=== PATIENT | male | born 1965 | race African-American/Black ===

== ENCOUNTER 2022-05-27 16:24 | Observation (INO) | payer OTHER, SELFPAY ==
[2022-05-27] VITALS (15 sets, daily range): BP systolic 119–150; BP diastolic 54–80; PULSE 45–96; RESP 11–17; TEMP 36.2–37.2; O2SAT 93–100; BMI 33.0
--- NOTE | ~2022-05-27 | XR_ITS ---
EXAMINATION: XR chest 2V DATE: 05/28/2022 10:32 INDICATION: Chest pain, rib fracture TECHNIQUE: AP and lateral views of the chest are obtained. COMPARISON: 05/27/2022 FINDINGS: There are minimal persistent airspace opacities of the medial right lower lobe without sign ificant change. The known right rib fractures are not well demonstrated. No pleural effusion or pneum othorax. The cardiomediastinal silhouette is normal. There is moderate thoracic spondylosis. IMPRESSION: 1. Stable airspace opacities in the medial right lower lobe, consistent with atelectasis versus pulmo nary contusion. Reviewed, dictated and finalized at location A. IMPRESSION: 1. Stable airspace opacities in the medial right lower lobe, consistent with at electasis versus pulmonary contusion.
--- NOTE | ~2022-05-27 | XR_ITS ---
EXAMINATION: XR chest 1V portable INDICATION: Chest pain after fall TECHNIQUE: Portable AP chest at 1901 hours COMPARISON: CT from today FINDINGS: The known right rib fractures are not well demonstrated. There are airspace opacities in th e medial aspect of the right lower lobe. No pleural effusion or pneumothorax. Changes of fusion proce dure are noted at T8-9. IMPRESSION: 1. Minimal airspace opacity in the medial aspect of the right lower lobe demonstrated to be associate d with rib fractures on the comparison CT and consistent with atelectasis versus pulmonary contusion. Reviewed, dictated and finalized at location F. IMPRESSION: 1. Minimal airspace opacity in the medial aspect of the right lower lobe demons trated to be associated with rib fractures on the comparison CT and consistent with atelectasis versus pulmonary contusion.
--- NOTE | ~2022-05-27 | CT_ITS ---
EXAMINATION: CT thoracic lumbar wo con DATE: 05/27/2022 18:06 INDICATION: Thoracic and lumbar back pain after fall TECHNIQUE: Computed tomography (CT) of the thoracic and lumbar spine was performed without intravenou s contrast. The dose-length product (DLP) was 1921.24 mGy-cm. Iterative reconstruction was used. COMPARISON: None FINDINGS: Thoracic spine: There are changes of fusion at T8 and T9. There is severe loss of intervertebral disc space height at T7-8. There is mild loss of intervertebral disc space height throughout much of the remainder of the thoracic spine. No thoracic spine fracture is identified. There is an acute posterom edial fracture of the right ninth rib. There is an acute fracture of the right 10th rib near the rachelle culation with the right T10 transverse process. There are adjacent airspace opacities of the right lo wer lobe. There is a small right pleural effusion. Lumbar spine: Alignment is normal. There is no fracture. The vertebral body heights are maintained. T here is moderate loss of intervertebral disc space height at L4-5. There is moderate facet joint oste oarthritis at L4-5 and L5-S1. There is marked distention of the urinary bladder. IMPRESSION: 1. Acute fractures of the right ninth and 10th ribs with adjacent airspace opacities in the right low er lobe, consistent with atelectasis Nazia/or pulmonary contusion. 2. Small right pleural effusion. 3. Moderate thoracic and lumbar spondylosis without spine fracture identified. Reviewed, dictated and finalized at location F. IMPRESSION: 1. Acute fractures of the right ninth and 10th ribs with adjacent airspace opac ities in the right lower lobe, consistent with atelectasis Nazia/or pulmonary con tusion. 2. Small right pleural effusion. 3. Moderate thoracic and lumbar spondylosis without spine fracture identified.
--- NOTE | 2022-05-27 17:31 | ED.FALL ---
HPI - Fall General Chief Complaint: Fall <Domenic Wharton PA-C - Last Filed: 05/28/22 00:52> Stated Complaint: Fall <Domenic Wharton PA-C - Last Filed: 05/28/22 00:52> Time Seen by Provider: 05/27/22 16:54 <Domenic Wharton PA-C - Last Filed: 05/28/22 00:52> History of Present Illness HPI Narrative: This is a 57-year-old male with recent history of back surgery on May 11, 2022 who presents to the ED with chief complaint of a fall. Patient uses wheelchair for mobility. States he [place] [employer] [place] and [place] the ramp and fell out of his wheelchair forwards. Patient states that he had a pinched nerve that causes paralysis of his lower legs, had surgery for a spacer in the spine with a surgeon at [facility]. At present patient complains of mid to low back pain. Denies any further site of pain or injury. Denies LOC or head injury. Denies chest pain, shortness of breath, fevers, nausea, vomiting. States his last pain medicine dose was last night at home. <Domenic Wharton PA-C - Last Filed: 05/28/22 00:52> Related Data Home Medications: Home Medications Medication Instructions Recorded Confirmed albuterol sulfate 90 mcg/actuation 2 puff inhalation Q4H PRN 05/27/22 05/27/22 aerosol inhaler Shortness Of Breath amlodipine 10 mg tablet 10 mg PO DAILY 05/27/22 05/27/22 atorvastatin 10 mg tablet 10 mg PO DAILY 05/27/22 05/27/22 hydrochlorothiazide 25 mg tablet 25 mg PO DAILY 05/27/22 05/27/22 losartan 50 mg tablet 50 mg PO DAILY 05/27/22 05/27/22 <BHARATH John Last Filed: 05/28/22 00:52> Allergies/Adverse Reactions: Allergies Allergy/AdvReac Type Severity Reaction Status Date / Time No Known Allergies Allergy Verified 05/28/22 19:37 <BHARATH John Last Filed: 05/28/22 00:52> Review of Systems Review of Systems: CONSTITUTIONAL: Denies fever, chills, or sweats. EYES: Denies visual changes, redness, or discharge. ENT: Denies rhinorrhea, congestion, sore throat, or otalgia. CARDIOVASCULAR: Denies chest pain, palpitations, or edema. RESPIRATORY: Denies cough or dyspnea. GASTROINTESTINAL: Denies abdominal pain, nausea, vomiting, or diarrhea. GENITOURINARY: Denies dysuria or hematuria. SKIN: Denies rash or itching. MUSCULOSKELETAL: See HPI NEUROLOGIC: Denies headache, numbness, dizziness, or weakness. PSYCHIATRIC: Denies anxiety or depression. <Domenic Wharton PA-C - Last Filed: 05/28/22 00:52> [facility] Social History Social History: Social History Smoking status: Former smoker Alcohol intake: never Substance use type: marijuana Lack of Transportation: YES Lack of Food: Never True Current Housing: I Have Housing Concerned About Future Housing: No Difficulty Paying Gas/Electric Bills: No Difficulty Paying for Meds: No Currently Unemployed: No Education: High School Diploma/GED Difficulty w/ Childcare or Family Care: No Spiritual care concerns: No <Domenic Wharton PA-C - Last Filed: 05/28/22 00:52> Exam Narrative: GENERAL: Well-appearing, well-nourished, and in no acute distress. HEAD: Normocephalic, atraumatic. EYES: PERRLA and EOMI. ENT: Nares clear, no rhinorrhea or epistaxis. Mucous membranes moist. Oropharynx without tonsillar hypertrophy exudate or other lesions. NECK: Supple. No adenopathy or masses. CHEST: No respiratory distress. Clear to auscultation. No wheezes rales or rhonchi HEART: Regular rate and rhythm. No murmur heard. Normal peripheral pulses. ABDOMEN: Soft, nontender, nondistended, normal active bowel sounds. EXTREMITIES: Moderate midline and paraspinal tenderness to the thoracolumbar spine. No tenderness to the cervical spine. No bony deformities or step-offs. No obvious deformities. No tenderness throughout the muscles and joints. No edema. 5 out of 5 sensation throughout the lower extremities, 0 out of 5 strength. 5 out of 5 strength and sensation i
[2022-05-27] MEDS: HYDROcodone/acetaminophen (*CRX) 7.5-325 MG TABLET 1 TAB PO (17:44)
--- NOTE | 2022-05-27 20:21 | PM.IMHP ---
H&P: HPI History of Present Illness Date/Time: 05/27/22 20:21 Chief Complaint: Fall Narrative: This is a 57-year-old male with recent history of back surgery on May 11, 2022 who presents to the ED with chief complaint of a fall.? Patient uses wheelchair for mobility.? States he [place] [employer] [place] and [place] the ramp and fell out of his wheelchair forwards.? Patient states that he had a pinched nerve that causes paralysis of his lower legs, had surgery for a spacer in the spine with a surgeon at [facility].? At present patient complains of mid to low back pain.? Denies any further site of pain or injury.? Denies LOC or head injury.? Denies chest pain, shortness of breath, fevers, nausea, vomiting. Patient was given pain meds and admiited to floor for further treatment. Review of Systems Review of Systems: All systems reviewed & are unremarkable except as noted in HPI and below (the history and physical examination.) [facility] Social History Social History Smoking status: Former smoker Alcohol intake: never Substance use type: marijuana Lack of Transportation: YES Lack of Food: Never True Current Housing: I Have Housing Concerned About Future Housing: No Difficulty Paying Gas/Electric Bills: No Difficulty Paying for Meds: No Currently Unemployed: No Education: High School Diploma/GED Difficulty w/ Childcare or Family Care: No Spiritual care concerns: No Meds Home Medications and Allergies Home Medications Medication Instructions Recorded Confirmed Type albuterol sulfate 90 mcg/actuation 2 puff inhalation Q4H PRN 05/27/22 05/27/22 History aerosol inhaler Shortness Of Breath amlodipine 10 mg tablet 10 mg PO DAILY 05/27/22 05/27/22 History atorvastatin 10 mg tablet 10 mg PO DAILY 05/27/22 05/27/22 History hydrochlorothiazide 25 mg tablet 25 mg PO DAILY 05/27/22 05/27/22 History losartan 50 mg tablet 50 mg PO DAILY 05/27/22 05/27/22 History Allergies Allergy/AdvReac Type Severity Reaction Status Date / Time No Known Allergies Allergy Verified 05/27/22 16:31 Vital Signs Vital Signs - 24 hr 05/27/22 16:26 05/27/22 16:27 05/27/22 16:30 Temperature 37.2 C Pulse Rate 96 91 95 Respiratory Rate 16 14 17 Blood Pressure 119/80 Pulse Oximetry 99 98 100 Oxygen Delivery Room Air 05/27/22 16:45 05/27/22 17:00 05/27/22 17:45 Temperature Pulse Rate 83 82 79 Respiratory Rate 14 15 17 Blood Pressure Pulse Oximetry Oxygen Delivery 05/27/22 18:01 05/27/22 18:14 05/27/22 18:16 Temperature Pulse Rate 61 45 L 49 L Respiratory Rate 14 16 14 Blood Pressure 140/70 125/66 Pulse Oximetry 100 Oxygen Delivery 05/27/22 18:46 05/27/22 19:00 Temperature Pulse Rate 63 59 L Respiratory Rate 13 13 Blood Pressure 126/54 L Pulse Oximetry Oxygen Delivery Exam Narrative: GENERAL: Well-appearing, well-nourished, and in no acute distress. HEAD: Normocephalic, atraumatic. EYES: PERRLA and EOMI. ENT: Nares clear, no rhinorrhea or epistaxis.? Mucous membranes moist.? Oropharynx without tonsillar hypertrophy exudate or other lesions. NECK: Supple.? No adenopathy or masses.? CHEST: No respiratory distress. Clear to auscultation. No wheezes rales or rhonchi HEART: Regular rate and rhythm.? No murmur heard.? Normal peripheral pulses. ABDOMEN: Soft, nontender, nondistended, normal active bowel sounds. EXTREMITIES: Moderate midline and paraspinal tenderness to the thoracolumbar spine.? No tenderness to the cervical spine.? No bony deformities or step-offs. ?No obvious deformities.? No tenderness throughout the muscles and joints.? No edema.? 5 out of 5 sensation throughout the lower extremities, 0 out of 5 strength.? 5 out of 5 strength and sensation in the upper extremities. SKIN: Warm, dry, no rash. NEURO: Alert and oriented x3. No focal deficits.? PSYCH: Normal mood and affect. Assessment and Plan
[2022-05-27 20:39] LABS: Alanine Aminotransferase 68 U/L (6-50); Albumin Level 3.8 g/dL (3.5-5.1); Alkaline Phosphatase 118 U/L (38-126); Anion Gap 11 mmol/L (8-16); Aspartate Amino Transferase 38 U/L (17-59); Bilirubin,Total 0.7 mg/dL (0.2-1.3); Blood Urea Nitrogen 21 mg/dL (9-20); Calcium 9.3 mg/dL (8.4-10.2); Carbon Dioxide 25 mmol/L (22-30); Chloride 113 mmol/L (98-107); Estimated CRCL calculation 81 ml/min; Estimated Glomerular Filt Rate > 60; Glucose 95 mg/dL (65-110); Potassium 2.9 mmol/L (3.4-5.0); Sodium 149 mmol/L (137-145)
[2022-05-27 21:00] LABS: Basophils Percent Auto 0.1 % (0.2-1.2); Eosinophils Percent Auto 0.1 % (0-4.4); Hematocrit 37.1 % (42.0-52.0); Hemoglobin 11.9 g/dL (14.0-18.0); Immature Granulocyte Absolute 0.04 K/mm3 (0.00-0.031); Immature Granulocyte Percent A 0.3 % (0-0.5); Lymphocytes Absolute Auto 2.53 K/mm3 (0.9-3.2); Lymphocytes Percent Auto 18.6 % (18.3-44.2); Mean Corpuscular HGB Conc 32.1 g/dl (32-36); Mean Corpuscular Hemoglobin 31.8 pg (26-34); Mean Corpuscular Volume 99.2 fl (80-100); Mean Platelet Volume 11.6 fl (7.4-10.4); Monocytes Absolute Auto 1.5 K/mm3 (0.1-0.6); Monocytes Percent Auto 11.1 % (2.6-8.5); Neutrophils Absolute Auto 9.5 K/mm3 (1.3-6.7); Neutrophils Percent Auto 69.8 % (45.5-73.1); Platelet Count Result 280 k/mm3 (150-375); Red Blood Count 3.74 M/mm3 (4.6-6.20); Red Cell Distribution Width 16.3 % (11.5-14.5); White Blood Count 13.6 K/mm3 (4.5-10.0)
--- NOTE | 2022-05-27 21:50 | ADMGEN ---
This patient, Too Ly, was admitted to [facility] Surg Room 320-01. Patient/family oriented to hospital policies and general routines including ID bracelet, bed and alarms, visiting hours, pain management, procedures, bathroom and other care routines, personal items, smoking policy, room service/diet, and visiting hours. Information on how to activate the Rapid Response Team has been discussed. Patient/Family are encouraged to report perceived risks to care and to ask questions if they do not understand what they are told or what they should do.
[2022-05-27] MEDS: ENOXAPARIN 40 MG/0.4 ML SYRINGE SUB-Q (22:11)
[2022-05-27] MEDS: POTASSIUM CHLORIDE 20 MEQ TABLET.ER 40 MEQ PO (22:11)
[2022-05-28 06:00] VITALS: BP 124/56; PULSE 57; RESP 16; TEMP 36.1; O2SAT 100
[2022-05-28] MEDS: ENOXAPARIN 40 MG/0.4 ML SYRINGE SUB-Q (08:59)
[2022-05-28] MEDS: amLODIPine BESYLATE 5 MG TABLET 10 MG PO (08:59)
[2022-05-28] MEDS: LOSARTAN POTASSIUM 50 MG TABLET PO (08:59)
[2022-05-28] MEDS: POTASSIUM CHLORIDE 20 MEQ TABLET.ER 40 MEQ PO (08:59)
[2022-05-28] MEDS: HYDROcodone/acetaminophen (*CRX) 5-325 MG TABLET 1 TAB PO (08:59)
[2022-05-28] MEDS: ATORVASTATIN 10 MG TABLET PO (08:59)
--- NOTE | 2022-05-28 11:22 | PCPTNOTE ---
Just got back in bed with the maximove by nursing. Will check on the patient later.
[2022-05-28 14:00] VITALS: BP 147/68; PULSE 58; RESP 14; TEMP 36.4; O2SAT 100
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
--- NOTE | 2022-05-28 15:58 | PC.NURSE ---
patient states that he is going to leave AMA. He is alert and oriented x4, and is aware of what leaving AMA means. He states that he daughter is on the way and will take him home. He said that he has outpatient PT set up. nurse contacted Dr. Cox and he is aware. iv removed, patient is currently waiting for daughter to get here.
--- NOTE | 2022-05-30 06:50 | PM.DS ---
DS: Admitting Diagnosis Discharge Date 05/28/22 Admitting Diagnosis Fall DS: Discharge Diagnosis Discharge Diagnosis (1) Multiple rib fractures: Code(s): S22.49XA - Multiple fractures of ribs, unspecified side, initial encounter for closed fracture Status: Acute (2) Atelectasis, right: Code(s): J98.11 - Atelectasis Status: Acute (3) Fall: Code(s): W19.XXXA - Unspecified fall, initial encounter Status: Acute (4) History of back surgery: Code(s): Z98.890 - Other specified postprocedural states Status: Acute (5) Hypokalemia: Code(s): E87.6 - Hypokalemia Status: Acute (6) History of hypertension: Code(s): Z86.79 - Personal history of other diseases of the circulatory system Status: Acute (7) Dyslipidemia: Code(s): E78.5 - Hyperlipidemia, unspecified Status: Acute (8) Paralysis of both lower limbs: Code(s): G82.20 - Paraplegia, unspecified Status: Acute (9) Hypernatremia: Code(s): E87.0 - Hyperosmolality and hypernatremia Status: Acute DS: Summary Hospital Course Reason for hospitalization: 57yo male with recent back surgery with paraplegia here for fall. Please see H&P for details. Hospital Course: Patient was trying to get on the [employer] bus today and missed the ramp and fell out of his wheelchair.? Patient has a pinched nerve with paralysis of his lower legs. He had a surgery for a spacer in the spine at [facility] in April.? At present patient complains of mid to low back pain.? On admission, his vital signs were stable. WBC mildly elevated. Na 149 and potassium 2.9. He was on HCTZ and this was held. TSH normal. Cortisol level slightly elevated at 25. CT thoracic/lumbar spine showing acute fracture of the right 9th and 10th rib with adjacent airspace opacities in the RLL and small right pleural effusion. He was started on antibiotics and albuterol. Incentive spirometry ordered. PT/OT ordered. Patient later in the day decided to sign out against medical advise. Status at Discharge Cognitive/behavioral status at discharge: stable Time Spent with Patient Time attestation: Total time spent providing and/or coordinating discharge services: 32 minutes Time spent: Greater than 30 minutes Exam Narrative: AF 97.5 147/68 58 14 100% ra Gen - NARD Chest - CTA bilaterally, nml RR CV - RRR S1/S2 Abd - Soft, NT/ND, Positive BS Ext - trace pedal edema Neuro - Alert and oriented but has difficulty providing coherent time line of events. Paraplegia. Psych - Nml mood and affect but does become terse at times Skin - Warm and dry Discharge Plan Discharge Patient Disposition: Left Against Medical Advice Discharge Medications: No Action losartan 50 mg tablet 50 mg PO DAILY atorvastatin 10 mg tablet 10 mg PO DAILY amlodipine 10 mg tablet 10 mg PO DAILY hydrochlorothiazide 25 mg tablet 25 mg PO DAILY albuterol sulfate 90 mcg/actuation HFA aerosol inhaler 2 puff INHALATION Q4H PRN (Reason: Shortness Of Breath) Date of admission: 05/27/22 20:02 Primary Care Provider: PHYSICIAN NOT ON STAFF,NONSTAFF Admitting Provider: Chele Muniz Attending physician on admission: Chele Muniz Condition: Stable
--- NOTE | 2022-05-31 06:30 | PC.NURSE ---
urine cx is negative, now growth. Dr. Cox aware.
== END 2022-05-28 18:46 | disposition left against medical advice (07) ==
LOC: ANHED 20:06 → ANH3MEDSUR 21:12
PROVIDERS: Admitting Provider Internal Medicine; Emergency Provider Physician Assistant; Visit Provider Internal Medicine
DX: S22.41XA Multiple fractures of ribs, right side, initial encounter for closed fracture (principal); J98.11 Atelectasis; W05.0XXA Fall from non-moving wheelchair, initial encounter; Y93.89 Activity, other specified; Y92.811 Bus as the place of occurrence of the external cause; Z99.3 Dependence on wheelchair; G82.20 Paraplegia, unspecified; Z98.890 Other specified postprocedural states; J90 Pleural effusion, not elsewhere classified; M47.814 Spondylosis without myelopathy or radiculopathy, thoracic region; E87.6 Hypokalemia; E87.0 Hyperosmolality and hypernatremia; Z86.79 Personal history of other diseases of the circulatory system; E78.5 Hyperlipidemia, unspecified; M47.816 Spondylosis without myelopathy or radiculopathy, lumbar region; F12.90 Cannabis use, unspecified, uncomplicated; Z87.891 Personal history of nicotine dependence; Z79.51 Long term (current) use of inhaled steroids; Z79.899 Other long term (current) drug therapy
CPT/HCPCS: 36415; 71045; 71046; 72128; 72131; 80053; 82533; 84443; 85025; 87086; 96365; 96367; 96372; 99285; A9270; G0378; J0456; J0696; J1650

== ENCOUNTER 2022-05-28 19:29 | Inpatient (IN) | payer OTHER, SELFPAY ==
[2022-05-28] VITALS (7 sets, daily range): BP systolic 136–151; BP diastolic 66–81; PULSE 60–83; RESP 14–24; TEMP 36.3–36.6; O2SAT 100
[2022-05-28] MEDS: HYDROcodone/acetaminophen (*CRX) 10-325 MG TABLET 1 TAB PO (20:10)
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
--- NOTE | 2022-05-28 21:19 | PC.NURSE ---
Attempted to contact patients daughter again, no answer and unable to leave a message. Will continue to try to get ahold of her.
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
[2022-05-28 22:25] LABS: Basophils Percent Auto 0.2 % (0.2-1.2); Eosinophils Percent Auto 0.3 % (0-4.4); Hematocrit 37.9 % (42.0-52.0); Immature Granulocyte Absolute 0.05 K/mm3 (0.00-0.031); Immature Granulocyte Percent A 0.4 % (0-0.5); Lymphocytes Absolute Auto 2.67 K/mm3 (0.9-3.2); Mean Corpuscular HGB Conc 31.7 g/dl (32-36); Mean Corpuscular Hemoglobin 31.5 pg (26-34); Mean Corpuscular Volume 99.5 fl (80-100); Mean Platelet Volume 11.6 fl (7.4-10.4); Monocytes Absolute Auto 1.3 K/mm3 (0.1-0.6); Neutrophils Absolute Auto 9.2 K/mm3 (1.3-6.7); Neutrophils Percent Auto 69.1 % (45.5-73.1); Platelet Count Result 272 k/mm3 (150-375); Red Blood Count 3.81 M/mm3 (4.6-6.20); Red Cell Distribution Width 16.2 % (11.5-14.5); White Blood Count 13.4 K/mm3 (4.5-10.0)
[2022-05-28 22:49] LABS: Alanine Aminotransferase 56 U/L (6-50); Albumin Level 3.6 g/dL (3.5-5.1); Alkaline Phosphatase 110 U/L (38-126); Anion Gap 5 mmol/L (8-16); Aspartate Amino Transferase 34 U/L (17-59); Bilirubin,Total 0.7 mg/dL (0.2-1.3); Blood Urea Nitrogen 20 mg/dL (9-20); Calcium 9.2 mg/dL (8.4-10.2); Carbon Dioxide 34 mmol/L (22-30); Chloride 113 mmol/L (98-107); Estimated CRCL calculation 81 ml/min; Estimated Glomerular Filt Rate > 60; Glucose 94 mg/dL (65-110); Magnesium 2.6 mg/dL (1.6-2.3); Phosphorus 3.3 mg/dL (2.5-4.5); Potassium 2.8 mmol/L (3.4-5.0); Sodium 152 mmol/L (137-145)
[2022-05-28] MEDS: KCL 20 MEQ/SW 100 ML 100 ML 50 MEQ IVPB (23:18)
--- NOTE | 2022-05-28 23:45 | PM.IMHP ---
H&P: HPI History of Present Illness Date/Time: 05/28/22 23:45 Chief Complaint: Fall Narrative: This is a 57-year-old male with past medical history significant for spinal stenosis, hypertension, patient underwent recent back surgery for ?pinched nerve this was on April patient was discharged home wheelchair had a fall when he attempted to get on the bus, presented to the emergency room with several rib fractures was admitted to regular medical floor however patient left AMA but returned later in the day. Patient denies any fevers, rigors, chills, cough, sputum production has pain from thoracic spine down, has bilateral lower extremity weakness which is not improved by surgery. Patient is been admitted for further evaluation management and treatment. Review of Systems Review of Systems: Back pain, bilateral lower extremity weakness. Constitutional: Constitutional: Denies chills, Denies fatigue, Denies fever(s), Denies lethargy, Denies malaise and Denies night sweats Eyes: Eyes: Denies change in vision ENT: Denies dysphagia and Denies odynophagia Cardiovascular: Cardiovascular: Denies chest pain, Denies syncope, Denies leg edema, Denies lightheadedness and Denies palpitations Respiratory: Respiratory: Denies chest congestion, Denies excessive phlegm production and Denies dyspnea Gastrointestinal: Gastrointestinal: Denies abdominal pain, Denies dyspepsia, Denies heartburn, Denies diarrhea, Denies nausea and Denies vomiting Genitourinary: Genitourinary: Reports other (Incontinence) Musculoskeletal: Musculoskeletal: Reports back pain and Reports muscle weakness (Bilateral lower extremity) Integumentary/Breasts: Skin/Breast: Denies rash Neurologic: Reports focal weakness (Bilateral lower extremity) and Reports weakness (Bilateral lower extremity) Psychiatric: Psychiatric: Reports no additional psychiatric complaints and Reports as per HPI Endocrine: Endocrine: Denies cold intolerance, Denies fatigue, Denies flushing, Denies heat intolerance, Denies polyphagia, Denies polydipsia and Denies palpitations Hematologic/Lymphatic: Hematologic/Lymphatic: Reports no additional hematologic/lymphatic complaints and Reports as per HPI Allergic/Immunologic: Allergic/Immunologic: Reports no additional allergic/immunologic complaints and Reports as per HPI PMFSH Social History Social History Smoking status: Never smoker Alcohol intake: never Substance use: never Substance use type: marijuana Lack of Transportation: YES Lack of Food: Sometimes True Current Housing: I Do Not Have Housing Concerned About Future Housing: YES Difficulty Paying Gas/Electric Bills: No Difficulty Paying for Meds: No Currently Unemployed: No Education: High School Diploma/GED Difficulty w/ Childcare or Family Care: No Spiritual care concerns: No Meds Home Medications and Allergies Home Medications Medication Instructions Recorded Confirmed Type albuterol sulfate 90 mcg/actuation 2 puff inhalation Q4H PRN 05/27/22 05/29/22 History aerosol inhaler Shortness Of Breath amlodipine 10 mg tablet 10 mg PO DAILY 05/27/22 05/29/22 History atorvastatin 10 mg tablet 10 mg PO DAILY 05/27/22 05/29/22 History hydrochlorothiazide 25 mg tablet 25 mg PO DAILY 05/27/22 05/29/22 History losartan 50 mg tablet 50 mg PO DAILY 05/27/22 05/29/22 History Allergies Allergy/AdvReac Type Severity Reaction Status Date / Time No Known Allergies Allergy Verified 05/28/22 20:02 Vital Signs Vital Signs - 24 hr 05/28/22 19:34 05/28/22 20:02 05/28/22 22:19 Temperature 97.3 F L 97.8 F Pulse Rate 83 70 64 Respiratory Rate 16 17 14 Blood Pressure 143/81 H 140/80 136/66 Pulse Oximetry 100 100 100 Oxygen Delivery Room Air 05/28/22 20:06 05/28/22 20:28 05/28/22 22:20 Temperature Pulse Rate 76 61 60 Respiratory Rate 24 H 18 22 H Blood Pressure Pulse Oximetr
[2022-05-29] VITALS (8 sets, daily range): BP systolic 139–159; BP diastolic 65–71; PULSE 47–68; RESP 17–22; TEMP 35.9–36.4; O2SAT 100; BMI 32.8
--- NOTE | 2022-05-29 00:15 | ADMGEN ---
This patient, Too Ly, was admitted to 3 [facility] Surg Room 326-01. Patient/family oriented to hospital policies and general routines including ID bracelet, bed and alarms, visiting hours, pain management, procedures, bathroom and other care routines, personal items, smoking policy, room service/diet, and visiting hours. Information on how to activate the Rapid Response Team has been discussed. Patient/Family are encouraged to report perceived risks to care and to ask questions if they do not understand what they are told or what they should do.
[2022-05-29] MEDS: POTASSIUM CHLORIDE 20 MEQ TABLET 40 MEQ PO (06:57)
[2022-05-29 07:01] LABS: Basophils Percent Auto 0.3 % (0.2-1.2); Eosinophils Percent Auto 0.2 % (0-4.4); Hematocrit 37.8 % (42.0-52.0); Immature Granulocyte Absolute 0.07 K/mm3 (0.00-0.031); Immature Granulocyte Percent A 0.6 % (0-0.5); Lymphocytes Absolute Auto 2.23 K/mm3 (0.9-3.2); Mean Corpuscular HGB Conc 31.7 g/dl (32-36); Mean Corpuscular Volume 97.7 fl (80-100); Mean Platelet Volume 11.8 fl (7.4-10.4); Monocytes Absolute Auto 1.1 K/mm3 (0.1-0.6); Neutrophils Absolute Auto 8.9 K/mm3 (1.3-6.7); Neutrophils Percent Auto 71.9 % (45.5-73.1); Platelet Count Result 277 k/mm3 (150-375); Red Blood Count 3.87 M/mm3 (4.6-6.20); Red Cell Distribution Width 16.3 % (11.5-14.5); White Blood Count 12.4 K/mm3 (4.5-10.0)
[2022-05-29 07:28] LABS: Anion Gap 7 mmol/L (8-16); Blood Urea Nitrogen 20 mg/dL (9-20); Calcium 9.4 mg/dL (8.4-10.2); Carbon Dioxide 31 mmol/L (22-30); Chloride 115 mmol/L (98-107); Estimated CRCL calculation 73 ml/min; Estimated Glomerular Filt Rate > 60; Glucose 92 mg/dL (65-110); Potassium 2.8 mmol/L (3.4-5.0); Sodium 153 mmol/L (137-145)
[2022-05-29] MEDS: amLODIPine BESYLATE 5 MG TABLET 10 MG PO (08:21)
[2022-05-29] MEDS: hydroCHLOROthiazide 25 MG TABLET PO (08:21)
[2022-05-29] MEDS: LOSARTAN POTASSIUM 50 MG TABLET PO (08:21)
[2022-05-29] MEDS: ATORVASTATIN 10 MG TABLET PO (08:21)
[2022-05-29] MEDS: oxyCODONE HCL (*CRX) 10 MG TAB SR 12HR PO ×2 (08:23→21:26)
--- NOTE | 2022-05-29 10:26 | PM.IMPN ---
Progress Note: A&P Assessment and Plan (1) Multiple rib fractures: Code(s): S22.49XA - Multiple fractures of ribs, unspecified side, initial encounter for closed fracture Status: Acute Assessment and Plan: PT, incentive spirometry (2) Atelectasis, right: Code(s): J98.11 - Atelectasis Status: Acute Assessment and Plan: Incentive spirometry (3) Fall: Code(s): W19.XXXA - Unspecified fall, initial encounter Status: Acute Assessment and Plan: PT/OT (4) History of back surgery: Code(s): Z98.890 - Other specified postprocedural states Status: Acute Assessment and Plan: Postop back surgery at [facility] 05/11, [facility] (5) Hypokalemia: Code(s): E87.6 - Hypokalemia Status: Acute Assessment and Plan: Hold hydrochlorothiazide, replace and recheck (6) History of hypertension: Code(s): Z86.79 - Personal history of other diseases of the circulatory system Status: Acute (7) Dyslipidemia: Code(s): E78.5 - Hyperlipidemia, unspecified Status: Acute Plan PT/OT/care coordination to arrange safe discharge DVT prophylaxis with SCDs GI prophylaxis not indicated Code status full code Subjective Date/time seen: 05/29/22 10:26 Interval history: 57-year-old male with history of spinal stenosis and hypertension who is postop for back surgery from May 11 at [facility] then sent to a rehab and [place], has only been home since 05/24-05/25 or so, is presenting with a fall from his wheelchair with several rib fractures and continued pain and bilateral lower extremity weakness, was admitted 05/27, seen 05/28 and left AMA, returned to the ER later that evening with same concerns. No overnight events noted. No chest pain or shortness of breath. No nausea, vomiting or diarrhea. No fevers or chills. Review of Systems Review of Systems: 12 point review of systems was assessed and was negative except as noted in the HPI Exam Narrative: General: No acute distress, alert and oriented per baseline HEENT: Atraumatic, normocephalic, mucous membranes moist CV: Regular rate and rhythm, S1, S2 Lungs: Clear to auscultation bilaterally, no rales or crackles noted, no wheezes, good air entry Abdomen: Soft, nontender, nondistended Extremities: Normal to inspection Skin: No rashes noted, no lesions or wounds seen Psych: Euthymic, normal affect Objective Data Vital Signs Vital Signs: Vital Signs - 24 hr 05/28/22 19:34 05/28/22 20:02 05/28/22 22:19 Temperature 97.3 F L 97.8 F Pulse Rate 83 70 64 Respiratory Rate 16 17 14 Blood Pressure 143/81 H 140/80 136/66 Pulse Oximetry 100 100 100 Oxygen Delivery Room Air 05/28/22 20:06 05/28/22 20:28 05/28/22 22:20 Temperature Pulse Rate 76 61 60 Respiratory Rate 24 H 18 22 H Blood Pressure Pulse Oximetry 100 100 Oxygen Delivery 05/28/22 22:32 05/29/22 01:00 05/29/22 06:00 Temperature 97.6 F Pulse Rate 65 65 50 L Respiratory Rate 22 H 20 Blood Pressure 151/77 H 148/65 H Pulse Oximetry 100 100 Oxygen Delivery Room Air 05/29/22 08:48 05/29/22 08:02 Temperature Pulse Rate 52 L Respiratory Rate Blood Pressure Pulse Oximetry Oxygen Delivery Room Air Intake/Output Intake/Output: Intake & Output 05/26/22 05/27/22 05/28/22 05/29/22 23:59 23:59 23:59 23:59 Intake Total 100 Balance 100 Meds/Results Medications: Active Medications Generic Name Dose Route Start Last Admin Trade Name Freq PRN Reason Stop Dose Admin Acetaminophen 1,000 mg 05/29/22 01:50 Acetaminophen 500 Mg Tablet PO Q6H PRN Mild Pain (1-3) or Fever Albuterol 2 puff 05/29/22 01:50 Albuterol Sulfate (*Sp) Aerosol 1 Puff INHALATION Q4H PRN Shortness Of Breath Amlodipine Besylate 10 mg 05/29/22 09:00 05/29/22 08:21 Amlodipine Besylate
[2022-05-29 10:49] LABS: Anion Gap 7 mmol/L (8-16); Blood Urea Nitrogen 20 mg/dL (9-20); Calcium 9.4 mg/dL (8.4-10.2); Carbon Dioxide 31 mmol/L (22-30); Chloride 113 mmol/L (98-107); Estimated CRCL calculation 80 ml/min; Estimated Glomerular Filt Rate > 60; Glucose 89 mg/dL (65-110); Potassium 2.9 mmol/L (3.4-5.0); Sodium 151 mmol/L (137-145)
[2022-05-30] VITALS (9 sets, daily range): BP systolic 127–149; BP diastolic 73–77; PULSE 54–77; RESP 16–18; TEMP 35.5–36.3; O2SAT 100
[2022-05-30] MEDS: DEXTROSE 5% 1,000 ML 1,000 ML 75 ML IV CONT (05:19)
[2022-05-30 08:07] LABS: Basophils Percent Auto 0.2 % (0.2-1.2); Eosinophils Percent Auto 0.3 % (0-4.4); Hematocrit 38.9 % (42.0-52.0); Hemoglobin 12.3 g/dL (14.0-18.0); Immature Granulocyte Absolute 0.06 K/mm3 (0.00-0.031); Immature Granulocyte Percent A 0.5 % (0-0.5); Lymphocytes Absolute Auto 2.66 K/mm3 (0.9-3.2); Lymphocytes Percent Auto 20.2 % (18.3-44.2); Mean Corpuscular HGB Conc 31.6 g/dl (32-36); Mean Corpuscular Hemoglobin 31.1 pg (26-34); Mean Corpuscular Volume 98.5 fl (80-100); Mean Platelet Volume 11.8 fl (7.4-10.4); Monocytes Percent Auto 7.9 % (2.6-8.5); Neutrophils Absolute Auto 9.3 K/mm3 (1.3-6.7); Neutrophils Percent Auto 70.9 % (45.5-73.1); Platelet Count Result 265 k/mm3 (150-375); Red Blood Count 3.95 M/mm3 (4.6-6.20); Red Cell Distribution Width 16.4 % (11.5-14.5); White Blood Count 13.2 K/mm3 (4.5-10.0)
[2022-05-30 08:20] LABS: Alanine Aminotransferase 48 U/L (6-50); Albumin Level 3.8 g/dL (3.5-5.1); Alkaline Phosphatase 121 U/L (38-126); Anion Gap 7 mmol/L (8-16); Aspartate Amino Transferase 34 U/L (17-59); Bilirubin,Total 0.7 mg/dL (0.2-1.3); Blood Urea Nitrogen 19 mg/dL (9-20); Calcium 9.4 mg/dL (8.4-10.2); Carbon Dioxide 32 mmol/L (22-30); Chloride 112 mmol/L (98-107); Estimated CRCL calculation 80 ml/min; Estimated Glomerular Filt Rate > 60; Glucose 91 mg/dL (65-110); Sodium 151 mmol/L (137-145)
[2022-05-30] MEDS: LOSARTAN POTASSIUM 50 MG TABLET PO (11:10)
[2022-05-30] MEDS: ATORVASTATIN 10 MG TABLET PO (11:10)
[2022-05-30] MEDS: amLODIPine BESYLATE 5 MG TABLET 10 MG PO (11:10)
[2022-05-30] MEDS: oxyCODONE HCL (*CRX) 10 MG TAB SR 12HR PO ×2 (11:12→20:21)
[2022-05-31] VITALS (9 sets, daily range): BP systolic 140–152; BP diastolic 67–72; PULSE 56–89; RESP 16–19; TEMP 36.1–36.3; O2SAT 98–100
[2022-05-31 06:25] LABS: Basophils Percent Auto 0.2 % (0.2-1.2); Eosinophils Percent Auto 0.1 % (0-4.4); Hematocrit 39.6 % (42.0-52.0); Hemoglobin 12.7 g/dL (14.0-18.0); Immature Granulocyte Absolute 0.07 K/mm3 (0.00-0.031); Immature Granulocyte Percent A 0.5 % (0-0.5); Lymphocytes Absolute Auto 2.69 K/mm3 (0.9-3.2); Lymphocytes Percent Auto 18.8 % (18.3-44.2); Mean Corpuscular HGB Conc 32.1 g/dl (32-36); Mean Corpuscular Hemoglobin 31.2 pg (26-34); Mean Corpuscular Volume 97.3 fl (80-100); Monocytes Absolute Auto 1.2 K/mm3 (0.1-0.6); Monocytes Percent Auto 8.7 % (2.6-8.5); Neutrophils Absolute Auto 10.2 K/mm3 (1.3-6.7); Neutrophils Percent Auto 71.7 % (45.5-73.1); Platelet Count Result 264 k/mm3 (150-375); Red Blood Count 4.07 M/mm3 (4.6-6.20); Red Cell Distribution Width 16.4 % (11.5-14.5); White Blood Count 14.3 K/mm3 (4.5-10.0)
[2022-05-31 06:37] LABS: Alanine Aminotransferase 42 U/L (6-50); Albumin Level 3.9 g/dL (3.5-5.1); Alkaline Phosphatase 123 U/L (38-126); Anion Gap 7 mmol/L (8-16); Aspartate Amino Transferase 31 U/L (17-59); Bilirubin,Total 0.7 mg/dL (0.2-1.3); Blood Urea Nitrogen 20 mg/dL (9-20); Calcium 9.5 mg/dL (8.4-10.2); Carbon Dioxide 31 mmol/L (22-30); Chloride 113 mmol/L (98-107); Estimated CRCL calculation 73 ml/min; Estimated Glomerular Filt Rate > 60; Glucose 98 mg/dL (65-110); Potassium 2.9 mmol/L (3.4-5.0); Sodium 151 mmol/L (137-145)
[2022-05-31] MEDS: oxyCODONE HCL (*CRX) 10 MG TAB SR 12HR PO (08:58)
[2022-05-31] MEDS: amLODIPine BESYLATE 5 MG TABLET 10 MG PO (08:58)
[2022-05-31] MEDS: LOSARTAN POTASSIUM 50 MG TABLET PO (08:58)
[2022-05-31] MEDS: ATORVASTATIN 10 MG TABLET PO (08:58)
--- NOTE | 2022-05-31 13:34 | PM.IMPN ---
Progress Note: A&P Assessment and Plan (1) Multiple rib fractures: Code(s): S22.49XA - Multiple fractures of ribs, unspecified side, initial encounter for closed fracture Status: Acute Assessment and Plan: PT, incentive spirometry (2) Atelectasis, right: Code(s): J98.11 - Atelectasis Status: Acute Assessment and Plan: Incentive spirometry (3) Fall: Code(s): W19.XXXA - Unspecified fall, initial encounter Status: Acute Assessment and Plan: PT/OT (4) History of back surgery: Code(s): Z98.890 - Other specified postprocedural states Status: Acute Assessment and Plan: Postop back surgery at [facility] 05[facility]11, [facility] (5) Hypokalemia: Code(s): E87.6 - Hypokalemia Status: Acute Assessment and Plan: Hold hydrochlorothiazide, replace and recheck potassium is 2.9 today KCl rider to replace potassium (6) History of hypertension: Code(s): Z86.79 - Personal history of other diseases of the circulatory system Status: Acute (7) Dyslipidemia: Code(s): E78.5 - Hyperlipidemia, unspecified Status: Acute Subjective Date/time seen: 05/31/22 13:34 Interval history: 57-year-old male with history of spinal stenosis and hypertension who is postop for back surgery from May 11 at [facility] then sent to a rehab and [place], has only been home since 05/24-05/25 or so, is presenting with a fall from his wheelchair with several rib fractures and continued pain and bilateral lower extremity weakness, was admitted 05/27, seen 05/28 and left AMA, returned to the ER later that evening with same concerns. [place] [id number], sodium is 151, potassium is 2.9 Review of Systems Review of Systems: Some complaints of back pains Constitutional: Constitutional: Denies chills, Denies fatigue, Denies fever(s), Denies lethargy, Denies malaise, Denies night sweats and Reports weakness (Bilateral lower extremity) Exam Narrative: General: No acute distress holding conversation very weak HEENT: Atraumatic, normocephalic, mucous membranes moist CV: Regular rate and rhythm, S1, S2 Lungs: Clear to auscultation bilaterally, no rales or crackles noted, no wheezes, good air entry Abdomen: Soft, nontender, nondistended Extremities: Normal to inspection Skin: No rashes noted, no lesions or wounds seen Psych: Euthymic, normal affect Objective Data Vital Signs Vital Signs: Vital Signs - 24 hr 05/30/22 14:00 05/30/22 16:00 05/30/22 20:00 Temperature 36.3 C L Pulse Rate 58 L 58 L 58 L Respiratory Rate 16 16 Blood Pressure 149/77 H Pulse Oximetry 100 100 Oxygen Delivery Room Air 05/30/22 20:00 05/30/22 22:00 05/31/22 00:00 Temperature 36.1 C L Pulse Rate 64 64 67 Respiratory Rate 16 Blood Pressure 127/73 Pulse Oximetry 100 Oxygen Delivery 05/31/22 04:00 05/31/22 06:00 05/31/22 09:00 Temperature 36.1 C L Pulse Rate 65 56 L Respiratory Rate 19 Blood Pressure 141/67 H Pulse Oximetry 99 Oxygen Delivery Room Air Intake/Output Intake/Output: Intake & Output 05/28/22 05/29/22 05/30/22 05/31/22 23:59 23:59 23:59 23:59 Intake Total 1750 2650 100 Output Total 500 1500 500 Balance 1250 1150 -400 Meds/Results Medications: Active Medications Generic Name Dose Route Start Last Admin Trade Name Freq PRN Reason Stop Dose Admin Acetaminophen 1,000 mg 05/29/22 01:50 Acetaminophen 500 Mg Tablet PO Q6H PRN Mild Pain (1-3) or Fever Albuterol 2 puff 05/29/22 01:50 Albuterol Sulfate (*Sp) Aerosol 1 Puff INHALATION Q4H PRN Shortness Of Breath Amlodipine Besylate 10 mg 05/29/22 09:00 05/31/22 08:58 Amlodipine Besylate 5 Mg Tablet PO 10 mg DAILY ISAIAS Administration Atorvastatin Calcium 10 mg 05/29/22 09:00 05/31/22 08:58 Atorvastatin 10 Mg Tablet PO 10
--- NOTE | 2022-05-31 13:42 | PM.IMPN ---
Progress Note: A&P Assessment and Plan (1) Multiple rib fractures: Code(s): S22.49XA - Multiple fractures of ribs, unspecified side, initial encounter for closed fracture Status: Acute Assessment and Plan: PT, incentive spirometry (2) Atelectasis, right: Code(s): J98.11 - Atelectasis Status: Acute Assessment and Plan: Incentive spirometry (3) Fall: Code(s): W19.XXXA - Unspecified fall, initial encounter Status: Acute Assessment and Plan: PT/OT (4) History of back surgery: Code(s): Z98.890 - Other specified postprocedural states Status: Acute Assessment and Plan: Postop back surgery at [facility] 05/11, discharged from [facility] approximately 05/24 (5) Hypokalemia: Code(s): E87.6 - Hypokalemia Status: Acute Assessment and Plan: Hold hydrochlorothiazide, replace and recheck monitor sodium and potassium (6) History of hypertension: Code(s): Z86.79 - Personal history of other diseases of the circulatory system Status: Acute (7) Dyslipidemia: Code(s): E78.5 - Hyperlipidemia, unspecified Status: Acute Subjective Date/time seen: 05/30/22 13:00 Interval history: 57-year-old male with history of spinal stenosis and hypertension who is postop for back surgery from May 11 at [facility] then sent to a rehab and [place], has only been home since 05/24-05/25 or so, is presenting with a fall from his wheelchair with several rib fractures and continued pain and bilateral lower extremity weakness, was admitted 05/27, seen 05/28 and left AMA, returned to the ER later that evening with same concerns. Plan follow labs when medically stable start physical therapy, continue pain control Review of Systems Review of Systems: Some back pain Exam Narrative: General: No acute distress HEENT: Atraumatic, normocephalic, mucous membranes moist CV: Regular rate and rhythm, S1, S2 Lungs: Clear to auscultation bilaterally, no rales or crackles noted, no wheezes, good air entry Abdomen: Soft, nontender, nondistended Extremities: Normal to inspection Skin: No rashes noted, no lesions or wounds seen Psych: Euthymic, normal affect Objective Data Vital Signs Vital Signs: Vital Signs - 24 hr 05/30/22 14:00 05/30/22 16:00 05/30/22 20:00 Temperature 36.3 C L Pulse Rate 58 L 58 L 58 L Respiratory Rate 16 16 Blood Pressure 149/77 H Pulse Oximetry 100 100 Oxygen Delivery Room Air 05/30/22 20:00 05/30/22 22:00 05/31/22 00:00 Temperature 36.1 C L Pulse Rate 64 64 67 Respiratory Rate 16 Blood Pressure 127/73 Pulse Oximetry 100 Oxygen Delivery 05/31/22 04:00 05/31/22 06:00 05/31/22 09:00 Temperature 36.1 C L Pulse Rate 65 56 L Respiratory Rate 19 Blood Pressure 141/67 H Pulse Oximetry 99 Oxygen Delivery Room Air Intake/Output Intake/Output: Intake & Output 05/28/22 05/29/22 05/30/22 05/31/22 23:59 23:59 23:59 23:59 Intake Total 1750 2650 340 Output Total 500 1500 500 Balance 1250 1150 -160 Meds/Results Medications: Active Medications Generic Name Dose Route Start Last Admin Trade Name Freq PRN Reason Stop Dose Admin Acetaminophen 1,000 mg 05/29/22 01:50 Acetaminophen 500 Mg Tablet PO Q6H PRN Mild Pain (1-3) or Fever Albuterol 2 puff 05/29/22 01:50 Albuterol Sulfate (*Sp) Aerosol 1 Puff INHALATION Q4H PRN Shortness Of Breath Amlodipine Besylate 10 mg 05/29/22 09:00 05/31/22 08:58 Amlodipine Besylate 5 Mg Tablet PO 10 mg DAILY ISAIAS Administration Atorvastatin Calcium 10 mg 05/29/22 09:00 05/31/22 08:58 Atorvastatin 10 Mg Tablet PO 10 mg DAILY ISAIAS Administration Dextrose 1,000 mls @ 75 mls/hr 05/29/22 01:55 05/30/22 18:17 Dextrose 5% 1,000 Ml IV CONT Not Given .[id number] ISAIAS Potassium Chloride 100 mls @ 25 mls/hr 05/31/22 13:32 Kcl 40 Me
--- NOTE | 2022-05-31 14:18 | PM.CNNEP ---
Assessment and Plan Assessment and plan (1) Hypernatremia: Code(s): E87.0 - Hyperosmolality and hypernatremia Status: Acute Assessment and Plan: as noted on presentation on D5W IVFs -- will increase rate due to poor oral intake(?) check urine electrolytes follow trend of repeat sodium levels (2) Hypokalemia: Code(s): E87.6 - Hypokalemia Status: Acute Assessment and Plan: suspect to due poor oral intake, possible total K+ depletion, and HCTZ use replete K+ as needed check magnesium intermittently (3) Multiple rib fractures: Code(s): S22.49XA - Multiple fractures of ribs, unspecified side, initial encounter for closed fracture Status: Acute Assessment and Plan: incentive spirometry pain control (4) Fall: Code(s): W19.XXXA - Unspecified fall, initial encounter Status: Acute Assessment and Plan: PT/OT as tolerated fall precautions (5) Paralysis of both lower limbs: Code(s): G82.20 - Paraplegia, unspecified Status: Acute Assessment and Plan: s/p spinal surgery PT/OT as tolerated I will continue follow the patient with you while he remains hospitalized been further recommendations during his hospital course Thank you for allowing me to participate in the care this patient. History of Present Illness Reason for Consult Consult date: 05/31/22 Reason for consult: hypernatremia Chief Complaint Chief complaint: generalized weakness, falls History of Present Illness Narrative: The patient is a 57-year-old male with a past medical history as noted below who presented to [facility] Emergency room status post fall. He apparently was trying to get on a bus when he sustained a fall from his wheelchair. He initially presented to [facility] following this fall and was noted to have several rib fractures by imaging studies. Given his significant deconditioning from a recent back surgery as well as the a for mention rib fractures, he was admitted to the hospital for further evaluation therapy. However, he decided to leave against medical advise on that initial admission. However, due to his inability to get transportation home from family and his significant pain issues, he presented back to [facility] Emergency room for the same complaints. It should be noted on initial presentation as well as subsequent presentation that routine blood test demonstrated mild hypernatremia in association with hypokalemia. His hydrochlorothiazide medication was held and he was started on D5W IV fluids as well as potassium replacement which she remains on at this time on this ?2nd admission to the hospital. Renal consultation was requested due to his hypernatremia. Despite D5W IV fluids, my his sodium level is not changed significantly since admission. However, when should note, that he is not getting very much D5W IV fluids by his fluid rate and there is suspicion that his free water and oral intake is quite diminished at baseline. Furthermore, his hypokalemia is also persisted requiring multiple interventions in the form of oral and IV potassium replacement. Despite these electrolyte abnormalities, his main issue/concern is that of pain control and pain associated with his injuries associated with the recent fall. I am unclear if his hypernatremia and hypokalemia is a chronic issue or problem as I have no other previous blood test to compare to. Currently, at the time my evaluation, he is not appear to be in acute distress. Review of Systems Review of Systems: As per HPI. [facility] Social History Social History Smoking status: Never smoker Alcohol intake: never Substance use: never Substance use type: marijuana Lack of Transportation: YES Lack of Food: Sometimes True Current Housing: I Do Not Have Housing Concerned About
[2022-05-31] MEDS: POTASSIUM CHLORIDE 20 MEQ PACKET (FOR LIQUID) 40 MEQ PO (14:43)
[2022-05-31] MEDS: PIPERACILLN/TAZ 3.375GM/NS50ML 3.375 GM/50 ML BAG IVPB (15:35)
[2022-05-31] MEDS: POTASSIUM CHLORIDE INJ 40 MEQ in SODIUM CHLORIDE 0.9% IV 500 ML 130 MEQ IVPB (18:40)
--- NOTE | 2022-05-31 21:55 | PC.NURSE ---
Rounded on pt. Pt was to receive Zosyn and Oxycontin. Pt refused. Pt stated that he did not want any of his medications because his stomach was upset and he did not want to be bothered. Educated pt on medications he was to receive and that if he did refuse, then his stay may be lengthened. Pt still refused.
[2022-06-01] VITALS (9 sets, daily range): BP systolic 132–142; BP diastolic 70–76; PULSE 58–79; RESP 15–18; TEMP 36.2–36.3; O2SAT 98–100
[2022-06-01] MEDS: DEXTROSE 5% 1,000 ML 1,000 ML 75 ML IV CONT (03:22)
[2022-06-01] MEDS: PIPERACILLN/TAZ 3.375GM/NS50ML 3.375 GM/50 ML BAG IVPB ×4 (03:22→20:18)
[2022-06-01 06:05] LABS: Basophils Percent Auto 0.1 % (0.2-1.2); Eosinophils Absolute Auto 0.1 K/mm3 (0-0.3); Eosinophils Percent Auto 0.4 % (0-4.4); Hemoglobin 12.1 g/dL (14.0-18.0); Immature Granulocyte Absolute 0.07 K/mm3 (0.00-0.031); Immature Granulocyte Percent A 0.4 % (0-0.5); Lymphocytes Absolute Auto 2.11 K/mm3 (0.9-3.2); Lymphocytes Percent Auto 13.1 % (18.3-44.2); Mean Corpuscular HGB Conc 31.8 g/dl (32-36); Mean Corpuscular Hemoglobin 31.5 pg (26-34); Mean Platelet Volume 12.3 fl (7.4-10.4); Monocytes Absolute Auto 1.3 K/mm3 (0.1-0.6); Neutrophils Absolute Auto 12.6 K/mm3 (1.3-6.7); Platelet Count Result 246 k/mm3 (150-375); Red Blood Count 3.84 M/mm3 (4.6-6.20); Red Cell Distribution Width 16.5 % (11.5-14.5); White Blood Count 16.2 K/mm3 (4.5-10.0)
[2022-06-01 06:29] LABS: Alanine Aminotransferase 39 U/L (6-50); Albumin Level 3.6 g/dL (3.5-5.1); Alkaline Phosphatase 122 U/L (38-126); Anion Gap 8 mmol/L (8-16); Aspartate Amino Transferase 27 U/L (17-59); Bilirubin,Total 0.8 mg/dL (0.2-1.3); Blood Urea Nitrogen 20 mg/dL (9-20); Carbon Dioxide 30 mmol/L (22-30); Chloride 113 mmol/L (98-107); Estimated CRCL calculation 73 ml/min; Estimated Glomerular Filt Rate > 60; Glucose 104 mg/dL (65-110); Magnesium 2.6 mg/dL (1.6-2.3); Potassium 2.7 mmol/L (3.4-5.0); Sodium 151 mmol/L (137-145)
[2022-06-01] MEDS: POTASSIUM CHLORIDE 20 MEQ TABLET 40 MEQ PO (06:59)
--- NOTE | 2022-06-01 07:45 | PM.IMPN ---
Progress Note: A&P Assessment and Plan (1) Multiple rib fractures: Code(s): S22.49XA - Multiple fractures of ribs, unspecified side, initial encounter for closed fracture Status: Acute Assessment and Plan: PT, incentive spirometry (2) Atelectasis, right: Code(s): J98.11 - Atelectasis Status: Acute Assessment and Plan: Incentive spirometry (3) Fall: Code(s): W19.XXXA - Unspecified fall, initial encounter Status: Acute Assessment and Plan: PT/OT (4) History of back surgery: Code(s): Z98.890 - Other specified postprocedural states Status: Acute Assessment and Plan: Postop back surgery at [facility] 05/11, [facility] (5) Hypokalemia: Code(s): E87.6 - Hypokalemia Status: Acute Assessment and Plan: Hold hydrochlorothiazide, replace and recheck potassium is 2.9 today KCl rider to replace potassium (6) History of hypertension: Code(s): Z86.79 - Personal history of other diseases of the circulatory system Status: Acute (7) Dyslipidemia: Code(s): E78.5 - Hyperlipidemia, unspecified Status: Acute Subjective Date/time seen: 06/01/22 07:45 no new issues labs noted Exam Narrative: General: No acute distress HEENT: Atraumatic, normocephalic, mucous membranes moist CV: Regular rate and rhythm, S1, S2 Lungs: Clear to auscultation bilaterally, no rales or crackles noted, no wheezes, good air entry Abdomen: Soft, nontender, nondistended Extremities: Normal to inspection Skin: No rashes noted, no lesions or wounds seen Psych: Euthymic, normal affect Objective Data Vital Signs Vital Signs: Vital Signs - 24 hr 05/31/22 09:00 05/31/22 14:00 05/31/22 08:00 Temperature 97.3 F L Pulse Rate 70 66 Respiratory Rate 16 Blood Pressure 140/71 Pulse Oximetry 100 Oxygen Delivery Room Air 05/31/22 12:00 05/31/22 16:00 05/31/22 20:00 Temperature Pulse Rate 89 57 L 63 Respiratory Rate Blood Pressure Pulse Oximetry Oxygen Delivery 05/31/22 20:00 05/31/22 22:00 06/01/22 00:00 Temperature 97.3 F L Pulse Rate 62 63 Respiratory Rate 19 Blood Pressure 152/72 H Pulse Oximetry 98 Oxygen Delivery Room Air 06/01/22 04:00 06/01/22 06:00 Temperature 97.1 F L Pulse Rate 68 58 L Respiratory Rate 18 Blood Pressure 141/76 H Pulse Oximetry 100 Oxygen Delivery Intake/Output Intake/Output: Intake & Output 05/29/22 05/30/22 05/31/22 06/01/22 23:59 23:59 23:59 23:59 Intake Total 1750 3650 1140 270 Output Total 500 1500 800 700 Balance 1250 2150 340 -430 Meds/Results Medications: Active Medications Generic Name Dose Route Start Last Admin Trade Name Freq PRN Reason Stop Dose Admin Acetaminophen 1,000 mg 05/29/22 01:50 Acetaminophen 500 Mg Tablet PO Q6H PRN Mild Pain (1-3) or Fever Albuterol 2 puff 05/29/22 01:50 Albuterol Sulfate (*Sp) Aerosol 1 Puff INHALATION Q4H PRN Shortness Of Breath Amlodipine Besylate 10 mg 05/29/22 09:00 05/31/22 08:58 Amlodipine Besylate 5 Mg Tablet PO 10 mg DAILY ISAIAS Administration Atorvastatin Calcium 10 mg 05/29/22 09:00 05/31/22 08:58 Atorvastatin 10 Mg Tablet PO 10 mg DAILY ISAIAS Administration Dextrose 1,000 mls @ 75 mls/hr 05/29/22 01:55 06/01/22 03:22 Dextrose 5% 1,000 Ml IV CONT 75 mls/hr .[id number] ISAIAS Administration Piperacillin/Tazobactam/Dextrose 3.375 gm in 50 mls @ 100 mls/hr 05/31/22 15:00 06/01/22 03:52 Zosyn 3.375 Gm/Ns 50 Ml IVPB Infused Q6H ISAIAS Infusion Potassium Chloride 40 meq/ 520 mls @ 130 mls/hr 06/01/22 06:39 Sodium Chloride IVPB 06/01/22 10:38 ONCE ONE Potassium Chloride 40 meq/ 520 mls @ 130 mls/hr 06/01/22 07:44 Sodium Chloride IVPB 06/01/22 11:43 ONCE ONE Losartan Potassium 50 mg 05/29/22 09:00 05/31/22 08:58 L
[2022-06-01] MEDS: POTASSIUM CHLORIDE INJ 40 MEQ in SODIUM CHLORIDE 0.9% IV 500 ML 130 MEQ IVPB (07:50)
[2022-06-01 09:24] LABS: Creatinine Urine 101.9 mg/dL
[2022-06-01 09:26] LABS: Sodium Urine Random 35 meq/L
[2022-06-01] MEDS: SILVERGEL (ELTA) 45 ML 1 APPLIC TOPICAL (11:58)
--- NOTE | 2022-06-01 12:35 | PM.PNNEP ---
Progress Note: A&P Assessment and Plan (1) Hypernatremia: Code(s): E87.0 - Hyperosmolality and hypernatremia Status: Acute Assessment and Plan: as noted on presentation on D5W IVFs -- attempt to titrate as needed due to poor oral intake(?) patient refusing oral hydration and oral potassium supplements urine electrolytes c/w prerena azotemia follow trend of repeat sodium levels (2) Hypokalemia: Code(s): E87.6 - Hypokalemia Status: Acute Assessment and Plan: suspect to due poor oral intake, possible total K+ depletion, and HCTZ use replete K+ as needed may need to consider adding to IVF since refusing oral K+ supplements check magnesium intermittently (3) Multiple rib fractures: Code(s): S22.49XA - Multiple fractures of ribs, unspecified side, initial encounter for closed fracture Status: Acute Assessment and Plan: incentive spirometry pain control (4) Fall: Code(s): W19.XXXA - Unspecified fall, initial encounter Status: Acute Assessment and Plan: PT/OT as tolerated fall precautions (5) Paralysis of both lower limbs: Code(s): G82.20 - Paraplegia, unspecified Status: Acute Assessment and Plan: s/p spinal surgery PT/OT as tolerated Will continue to follow. Subjective Date/time seen: 06/01/22 12:35 No apparent distress voiced at the time of my visit; nursing reports that IV line was kinked last night so he did not get much IVFs due to this; furthermore, he is resistant to taking any/all oral medications including potassium and free water. Exam Narrative: General: male in NAD Heart: normal S1 and S2; no rub Lungs: clear to auscultation Abdomen: soft, nontender, nondistended, positive bowel sounds Extremities: no cyanosis or clubbing; no edema Skin: warm and dry Objective Data Vital Signs Vital Signs: Vital Signs Temp Pulse Resp BP Pulse Ox O2 Del Method 06/01/22 09:00 Room Air 06/01/22 06:00 97.1 F L 58 L 18 141/76 H 100 06/01/22 04:00 68 06/01/22 00:00 63 05/31/22 22:00 97.3 F L 62 19 152/72 H 98 05/31/22 20:00 Room Air 05/31/22 20:00 63 05/31/22 16:00 57 L 05/31/22 14:00 97.3 F L 70 16 140/71 100 Intake/Output Intake/Output: Intake & Output 05/29/22 05/30/22 05/31/22 06/01/22 23:59 23:59 23:59 23:59 Intake Total 1750 3650 1140 270 Output Total 500 1500 800 700 Balance 1250 2150 340 -430 Meds/Results Medications: Active Medications Generic Name Dose Route Start Last Admin Trade Name Freq PRN Reason Stop Dose Admin Acetaminophen 1,000 mg 05/29/22 01:50 Acetaminophen 500 Mg Tablet PO Q6H PRN Mild Pain (1-3) or Fever Albuterol 2 puff 05/29/22 01:50 Albuterol Sulfate (*Sp) Aerosol 1 Puff INHALATION Q4H PRN Shortness Of Breath Amlodipine Besylate 10 mg 05/29/22 09:00 05/31/22 08:58 Amlodipine Besylate 5 Mg Tablet PO 10 mg DAILY ISAIAS Administration Atorvastatin Calcium 10 mg 05/29/22 09:00 05/31/22 08:58 Atorvastatin 10 Mg Tablet PO 10 mg DAILY ISAIAS Administration Dextrose 1,000 mls @ 75 mls/hr 05/29/22 01:55 06/01/22 03:22 Dextrose 5% 1,000 Ml IV CONT 75 mls/hr .[id number] ISAIAS Administration Piperacillin/Tazobactam/Dextrose 3.375 gm in 50 mls @ 100 mls/hr 05/31/22 15:00 06/01/22 09:00 Zosyn 3.375 Gm/Ns 50 Ml IVPB 100 mls/hr Q6H ISAIAS Administration Losartan Potassium 50 mg 05/29/22 09:00 05/31/22 08:58 Losartan Potassium 50 Mg Tablet PO 50 mg DAILY ISAIAS Administration Miconazole Nitrate 1 applic 05/31/22 09:00 06/01/22 08:59 Miconazole 2% Antifungal Ointment 56 Gm TOPICAL 1 applic Q12HR ISAIAS Administration Oxycodone HCl 10 mg 05/29/22 09:00 06/01/22 09:06 Oxycodone Hcl (*Crx) 10 Mg Tab Sr 12hr PO Not Given Q12HR ISAIAS Silver Nitrate 1 applic 06/01/22 09:00 06/01/22 11:5
[2022-06-01 16:14] LABS: Anion Gap 8 mmol/L (8-16); Blood Urea Nitrogen 18 mg/dL (9-20); Calcium 9.2 mg/dL (8.4-10.2); Carbon Dioxide 30 mmol/L (22-30); Chloride 117 mmol/L (98-107); Estimated CRCL calculation 73 ml/min; Estimated Glomerular Filt Rate > 60; Glucose 99 mg/dL (65-110); Sodium 155 mmol/L (137-145)
[2022-06-01] MEDS: POTASSIUM CHLORIDE INJ 40 MEQ in DEXTROSE 5% 1,000 ML 1,000 ML 100 ML IV CONT (18:08)
[2022-06-02] VITALS (9 sets, daily range): BP systolic 122–148; BP diastolic 69–76; PULSE 57–64; RESP 14–18; TEMP 36–36.3; O2SAT 100
--- NOTE | 2022-06-02 02:39 | PC.NURSE ---
Pt has refused all oral medications so far this shift. Pt is now refusing to sign the consent for PICC line placement, which he has an order for. Pt's current IV has went bad, and staff is currently trying to place a new IV. Pt is upset about being stuck again. Educated pt on the benefits of having a PICC line and preventing multiple sticks, pt continues to refuse and has become rude/agitated that we are bothering him.
[2022-06-02] MEDS: PIPERACILLN/TAZ 3.375GM/NS50ML 3.375 GM/50 ML BAG IVPB ×2 (03:08→09:08)
[2022-06-02] MEDS: POTASSIUM CHLORIDE INJ 40 MEQ in DEXTROSE 5% 1,000 ML 1,000 ML 100 ML IV CONT ×2 (06:02→15:42)
[2022-06-02 06:36] LABS: Basophils Percent Auto 0.2 % (0.2-1.2); Eosinophils Absolute Auto 0.9 K/mm3 (0-0.3); Eosinophils Percent Auto 5.1 % (0-4.4); Hemoglobin 12.4 g/dL (14.0-18.0); Immature Granulocyte Absolute 0.17 K/mm3 (0.00-0.031); Lymphocytes Absolute Auto 2.64 K/mm3 (0.9-3.2); Lymphocytes Percent Auto 15.6 % (18.3-44.2); Mean Corpuscular HGB Conc 31.8 g/dl (32-36); Mean Corpuscular Hemoglobin 31.3 pg (26-34); Mean Corpuscular Volume 98.5 fl (80-100); Mean Platelet Volume 12.7 fl (7.4-10.4); Monocytes Absolute Auto 1.4 K/mm3 (0.1-0.6); Monocytes Percent Auto 8.2 % (2.6-8.5); Neutrophils Absolute Auto 11.8 K/mm3 (1.3-6.7); Neutrophils Percent Auto 69.9 % (45.5-73.1); Platelet Count Result 223 k/mm3 (150-375); Red Blood Count 3.96 M/mm3 (4.6-6.20); Red Cell Distribution Width 17.1 % (11.5-14.5); White Blood Count 16.9 K/mm3 (4.5-10.0)
[2022-06-02 06:52] LABS: Alanine Aminotransferase 36 U/L (6-50); Albumin Level 3.6 g/dL (3.5-5.1); Alkaline Phosphatase 127 U/L (38-126); Anion Gap 7 mmol/L (8-16); Aspartate Amino Transferase 25 U/L (17-59); Bilirubin,Total 0.8 mg/dL (0.2-1.3); Blood Urea Nitrogen 17 mg/dL (9-20); Calcium 8.9 mg/dL (8.4-10.2); Carbon Dioxide 27 mmol/L (22-30); Chloride 120 mmol/L (98-107); Estimated CRCL calculation 67 ml/min; Estimated Glomerular Filt Rate > 60; Glucose 137 mg/dL (65-110); Potassium 3.8 mmol/L (3.4-5.0); Sodium 154 mmol/L (137-145)
[2022-06-02 07:09] LABS: Platelet Estimate Adequate (Adequate)
[2022-06-02 07:10] LABS: Anisocytosis 1+ (NORMAL); Burr Cells 1+ (NORMAL); Schistocytes None Seen (NORMAL); Target Cells 1+ (NORMAL)
--- NOTE | 2022-06-02 10:54 | PM.IMPN ---
Progress Note: A&P Assessment and Plan (1) Multiple rib fractures: Code(s): S22.49XA - Multiple fractures of ribs, unspecified side, initial encounter for closed fracture Status: Acute Assessment and Plan: PT, incentive spirometry (2) Atelectasis, right: Code(s): J98.11 - Atelectasis Status: Acute Assessment and Plan: Incentive spirometry (3) Fall: Code(s): W19.XXXA - Unspecified fall, initial encounter Status: Acute Assessment and Plan: PT/OT (4) History of back surgery: Code(s): Z98.890 - Other specified postprocedural states Status: Acute Assessment and Plan: Postop back surgery at [facility]11[facility] (5) Hypokalemia: Code(s): E87.6 - Hypokalemia Status: Acute Assessment and Plan: Hold hydrochlorothiazide, replace and recheck potassium is 2.9 today KCl rider to replace potassium (6) History of hypertension: Code(s): Z86.79 - Personal history of other diseases of the circulatory system Status: Acute (7) Dyslipidemia: Code(s): E78.5 - Hyperlipidemia, unspecified Status: Acute Subjective Date/time seen: 06/02/22 10:54 No new complaints Exam Narrative: General: No acute distress HEENT: Atraumatic, normocephalic, mucous membranes moist CV: Regular rate and rhythm, S1, S2 Lungs: Clear to auscultation bilaterally, no rales or crackles noted, no wheezes, good air entry Abdomen: Soft, nontender, nondistended Extremities: Normal to inspection Skin: No rashes noted, no lesions or wounds seen Psych: Euthymic, normal affect Objective Data Vital Signs Vital Signs: Vital Signs - 24 hr 06/01/22 14:00 06/01/22 12:13 06/01/22 16:00 Temperature 97.4 F L Pulse Rate 59 L 61 79 Respiratory Rate 15 Blood Pressure 142/72 H Pulse Oximetry 100 Oxygen Delivery 06/01/22 20:00 06/01/22 20:00 06/01/22 22:00 Temperature 97.3 F L Pulse Rate 75 70 Respiratory Rate 18 Blood Pressure 132/70 Pulse Oximetry 98 Oxygen Delivery Room Air 06/02/22 00:00 06/02/22 04:00 06/02/22 05:32 Temperature 96.8 F L Pulse Rate 60 58 L 63 Respiratory Rate 18 Blood Pressure 148/76 H Pulse Oximetry 100 Oxygen Delivery 06/02/22 08:00 Temperature Pulse Rate 57 L Respiratory Rate Blood Pressure Pulse Oximetry Oxygen Delivery Intake/Output Intake/Output: Intake & Output 05/30/22 05/31/22 06/01/22 06/02/22 23:59 23:59 23:59 23:59 Intake Total 3650 1140 1500 1120 Output Total 9416 477 8985 400 Balance 2150 340 500 720 Meds/Results Medications: Active Medications Generic Name Dose Route Start Last Admin Trade Name Freq PRN Reason Stop Dose Admin Acetaminophen 1,000 mg 05/29/22 01:50 Acetaminophen 500 Mg Tablet PO Q6H PRN Mild Pain (1-3) or Fever Albuterol 2 puff 05/29/22 01:50 Albuterol Sulfate (*Sp) Aerosol 1 Puff INHALATION Q4H PRN Shortness Of Breath Amlodipine Besylate 10 mg 05/29/22 09:00 06/01/22 15:21 Amlodipine Besylate 5 Mg Tablet PO Not Given DAILY ISAIAS Atorvastatin Calcium 10 mg 05/29/22 09:00 06/01/22 15:21 Atorvastatin 10 Mg Tablet PO Not Given DAILY ISAIAS Piperacillin/Tazobactam/Dextrose 3.375 gm in 50 mls @ 100 mls/hr 05/31/22 15:00 06/02/22 09:08 Zosyn 3.375 Gm/Ns 50 Ml IVPB 100 mls/hr Q6H ISAIAS Administration Potassium Chloride 40 meq/ 1,020 mls @ 100 mls/hr 06/01/22 17:00 06/02/22 06:02 Dextrose IV CONT 100 mls/hr .[id number] ISAIAS Administration Losartan Potassium 50 mg 05/29/22 09:00 06/01/22 15:21 Losartan Potassium 50 Mg Tablet PO Not Given DAILY ISAIAS Miconazole Nitrate 1 applic 05/31/22 09:00 06/01/22 20:19 Miconazole 2% Antifungal Ointment 56 Gm TOPICAL 1 applic Q12HR ISAIAS Administration Oxycodone HCl 10 mg 05/29/22 09:00 06/01/22 20:19 Oxycodone Hcl
--- NOTE | 2022-06-02 11:55 | PC.NURSE ---
During morning med pass patient refused all oral medication, educated patient on the importance of his medication. he stated he may take it a little later; therefore, I am keeping the medication on standby and continue to offer the medication to the patient.
--- NOTE | 2022-06-02 12:28 | P.PNNP_ITS ---
Progress Note: A&P Assessment and Plan (1) Hypernatremia: Code(s): E87.0 - Hyperosmolality and hypernatremia Status: Acute Assessment and Plan: * as noted on presentation * on D5W IVFs -- attempt to titrate as needed * due to poor oral intake(?) * patient refusing oral hydration and oral potassium supplements * urine electrolytes c/w prerenal azotemia * follow trend of repeat sodium levels (2) Hypokalemia: Code(s): E87.6 - Hypokalemia Status: Acute Assessment and Plan: * suspect to due poor oral intake, possible total K+ depletion, and HCTZ use * replete K+ as needed * added K+ to IVFs since refusing oral K+ supplements * check magnesium intermittently (3) Multiple rib fractures: Code(s): S22.49XA - Multiple fractures of ribs, unspecified side, initial encounter for closed fracture Status: Acute Assessment and Plan: * incentive spirometry * pain control (4) Fall: Code(s): W19.XXXA - Unspecified fall, initial encounter Status: Acute Assessment and Plan: * PT/OT as tolerated * fall precautions (5) Paralysis of both lower limbs: Code(s): G82.20 - Paraplegia, unspecified Status: Acute Assessment and Plan: * s/p spinal surgery * PT/OT as tolerated Will continue to follow. Subjective Date/time seen: 06/02/22 12:28 No acute complaints voiced at this time; potassium better but sodium still elevated; still refusing oral medications (water and K+ supplements..etc) despite encouragement from nursing; no acute distress noted. Exam Narrative: General: male in NAD Heart: normal S1 and S2; no rub Lungs: clear to auscultation Abdomen: soft, nontender, nondistended, positive bowel sounds Extremities: no cyanosis or clubbing; no edema Skin: warm and intact Objective Data Vital Signs Vital Signs: Vital Signs Temp Pulse Resp BP Pulse Ox O2 Del Method 06/02/22 08:00 57 L 06/02/22 05:32 96.8 F L 63 18 148/76 H 100 06/02/22 04:00 58 L 06/02/22 00:00 60 06/01/22 22:00 97.3 F L 70 18 132/70 98 06/01/22 20:00 75 06/01/22 20:00 Room Air 06/01/22 16:00 79 06/01/22 14:00 97.4 F L 59 L 15 142/72 H 100 Intake/Output Intake/Output: Intake & Output 05/30/22 05/31/22 06/01/22 06/02/22 23:59 23:59 23:59 23:59 Intake Total 3650 1140 1500 1120 Output Total 9428 900 9025 400 Balance 2150 340 500 720 Meds/Results Medications: Active Medications Generic Name Dose Route Start Last Admin Trade Name Freq PRN Reason Stop Dose Admin Acetaminophen 1,000 mg 05/29/22 01:50 Acetaminophen 500 Mg Tablet PO Q6H PRN Mild Pain (1-3) or Fever Albuterol 2 puff 05/29/22 01:50 Albuterol Sulfate (*Sp) Aerosol 1 Puff INHALATION Q4H PRN Shortness Of Breath Amlodipine Besylate 10 mg 05/29/22 09:00 06/01/22 15:21 Amlodipine Besylate 5 Mg Tablet PO Not Given DAILY ISAIAS Atorvastatin Calcium 10 mg 05/29/22 09:00 06/01/22 15:21 Atorvastatin 10 Mg Tablet PO Not Given
--- NOTE | 2022-06-02 12:28 | PM.PNNEP ---
Progress Note: A&P Assessment and Plan (1) Hypernatremia: Code(s): E87.0 - Hyperosmolality and hypernatremia Status: Acute Assessment and Plan: as noted on presentation on D5W IVFs -- attempt to titrate as needed due to poor oral intake(?) patient refusing oral hydration and oral potassium supplements urine electrolytes c/w prerenal azotemia follow trend of repeat sodium levels (2) Hypokalemia: Code(s): E87.6 - Hypokalemia Status: Acute Assessment and Plan: suspect to due poor oral intake, possible total K+ depletion, and HCTZ use replete K+ as needed added K+ to IVFs since refusing oral K+ supplements check magnesium intermittently (3) Multiple rib fractures: Code(s): S22.49XA - Multiple fractures of ribs, unspecified side, initial encounter for closed fracture Status: Acute Assessment and Plan: incentive spirometry pain control (4) Fall: Code(s): W19.XXXA - Unspecified fall, initial encounter Status: Acute Assessment and Plan: PT/OT as tolerated fall precautions (5) Paralysis of both lower limbs: Code(s): G82.20 - Paraplegia, unspecified Status: Acute Assessment and Plan: s/p spinal surgery PT/OT as tolerated Will continue to follow. Subjective Date/time seen: 06/02/22 12:28 No acute complaints voiced at this time; potassium better but sodium still elevated; still refusing oral medications (water and K+ supplements..etc) despite encouragement from nursing; no acute distress noted. Exam Narrative: General: male in NAD Heart: normal S1 and S2; no rub Lungs: clear to auscultation Abdomen: soft, nontender, nondistended, positive bowel sounds Extremities: no cyanosis or clubbing; no edema Skin: warm and intact Objective Data Vital Signs Vital Signs: Vital Signs Temp Pulse Resp BP Pulse Ox O2 Del Method 06/02/22 08:00 57 L 06/02/22 05:32 96.8 F L 63 18 148/76 H 100 06/02/22 04:00 58 L 06/02/22 00:00 60 06/01/22 22:00 97.3 F L 70 18 132/70 98 06/01/22 20:00 75 06/01/22 20:00 Room Air 06/01/22 16:00 79 06/01/22 14:00 97.4 F L 59 L 15 142/72 H 100 Intake/Output Intake/Output: Intake & Output 05/30/22 05/31/22 06/01/22 06/02/22 23:59 23:59 23:59 23:59 Intake Total 3650 1140 1500 1120 Output Total 9288 502 0703 400 Balance 2150 340 500 720 Meds/Results Medications: Active Medications Generic Name Dose Route Start Last Admin Trade Name Freq PRN Reason Stop Dose Admin Acetaminophen 1,000 mg 05/29/22 01:50 Acetaminophen 500 Mg Tablet PO Q6H PRN Mild Pain (1-3) or Fever Albuterol 2 puff 05/29/22 01:50 Albuterol Sulfate (*Sp) Aerosol 1 Puff INHALATION Q4H PRN Shortness Of Breath Amlodipine Besylate 10 mg 05/29/22 09:00 06/01/22 15:21 Amlodipine Besylate 5 Mg Tablet PO Not Given DAILY ISAIAS Atorvastatin Calcium 10 mg 05/29/22 09:00 06/01/22 15:21 Atorvastatin 10 Mg Tablet PO Not Given DAILY ISAIAS Piperacillin/Tazobactam/Dextrose 3.375 gm in 50 mls @ 100 mls/hr 05/31/22 15:00 06/02/22 09:08 Zosyn 3.375 Gm/Ns 50 Ml IVPB 100 mls/hr Q6H ISAIAS Administration Potassium Chloride 40 meq/ 1,020 mls @ 100 mls/hr 06/01/22 17:00 06/02/22 06:02 Dextrose IV CONT 100 mls/hr .[id number] ISAIAS Administration Losartan Potassium 50 mg 05/29/22 09:00 06/01/22 15:21 Losartan Potassium 50 Mg Tablet PO Not Given DAILY ISAIAS Miconazole Nitrate 1 applic 05/31/22 09:00 06/01/22 20:19 Miconazole 2% Antifungal Ointment 56 Gm TOPICAL 1 applic Q12HR ISAIAS Administration Oxycodone HCl 10 mg 05/29/22 09:00 06/01/22 20:19 Oxycodone Hcl (*Crx) 10 Mg Tab Sr 12hr PO Not Given Q12HR ISAIAS Silver Nitrate 1 applic 06/01/22 09:00 06/01/22 11:58 Silvergel (Elta) 45 Ml TOPICAL 1 applic DAILY ISAIAS Administration
[2022-06-02] MEDS: ONDANSETRON INJ 4 MG/2 ML VIAL IV PUSH (15:42)
[2022-06-02] MEDS: SILVERGEL (ELTA) 45 ML 1 APPLIC TOPICAL (15:44)
[2022-06-02 18:54] LABS: Anion Gap 6 mmol/L (8-16); Blood Urea Nitrogen 15 mg/dL (9-20); Calcium 8.7 mg/dL (8.4-10.2); Carbon Dioxide 27 mmol/L (22-30); Chloride 118 mmol/L (98-107); Estimated CRCL calculation 80 ml/min; Estimated Glomerular Filt Rate > 60; Glucose 112 mg/dL (65-110); Potassium 3.2 mmol/L (3.4-5.0); Sodium 151 mmol/L (137-145)
[2022-06-02 23:47] LABS: Anion Gap 7 mmol/L (8-16); Blood Urea Nitrogen 14 mg/dL (9-20); Calcium 9.1 mg/dL (8.4-10.2); Carbon Dioxide 24 mmol/L (22-30); Chloride 120 mmol/L (98-107); Estimated CRCL calculation 80 ml/min; Estimated Glomerular Filt Rate > 60; Glucose 111 mg/dL (65-110); Potassium 3.3 mmol/L (3.4-5.0); Sodium 151 mmol/L (137-145)
[2022-06-03] VITALS: PULSE 72
--- NOTE | 2022-06-03 00:41 | PC.NURSE ---
During the weight shifter on 06/03/2022, patient refuses to receive oxycodone, continuous dextrose, and receive a PICC line. Charge nurse, Eliseo Gibson, made aware, will continue to monitor.
[2022-06-03 04:00] VITALS: PULSE 69
[2022-06-03 05:33] VITALS: BP 113/83; PULSE 68; RESP 18; TEMP 36.4; O2SAT 100
[2022-06-03 07:17] LABS: Basophils Percent Auto 0.3 % (0.2-1.2); Eosinophils Absolute Auto 0.1 K/mm3 (0-0.3); Eosinophils Percent Auto 0.7 % (0-4.4); Hemoglobin 12.4 g/dL (14.0-18.0); Immature Granulocyte Absolute 0.09 K/mm3 (0.00-0.031); Immature Granulocyte Percent A 0.7 % (0-0.5); Lymphocytes Absolute Auto 2.42 K/mm3 (0.9-3.2); Lymphocytes Percent Auto 19.7 % (18.3-44.2); Mean Corpuscular HGB Conc 31.8 g/dl (32-36); Mean Corpuscular Hemoglobin 31.3 pg (26-34); Mean Corpuscular Volume 98.5 fl (80-100); Mean Platelet Volume 12.7 fl (7.4-10.4); Monocytes Absolute Auto 1.2 K/mm3 (0.1-0.6); Monocytes Percent Auto 9.8 % (2.6-8.5); Neutrophils Absolute Auto 8.5 K/mm3 (1.3-6.7); Neutrophils Percent Auto 68.8 % (45.5-73.1); Platelet Count Result 233 k/mm3 (150-375); Red Blood Count 3.96 M/mm3 (4.6-6.20); Red Cell Distribution Width 17.4 % (11.5-14.5); White Blood Count 12.3 K/mm3 (4.5-10.0)
[2022-06-03 07:29] LABS: Alanine Aminotransferase 34 U/L (6-50); Albumin Level 3.7 g/dL (3.5-5.1); Alkaline Phosphatase 128 U/L (38-126); Anion Gap 6 mmol/L (8-16); Aspartate Amino Transferase 25 U/L (17-59); Bilirubin,Total 0.7 mg/dL (0.2-1.3); Blood Urea Nitrogen 14 mg/dL (9-20); Calcium 8.9 mg/dL (8.4-10.2); Carbon Dioxide 26 mmol/L (22-30); Chloride 120 mmol/L (98-107); Estimated CRCL calculation 88 ml/min; Estimated Glomerular Filt Rate > 60; Glucose 102 mg/dL (65-110); Potassium 3.3 mmol/L (3.4-5.0); Sodium 152 mmol/L (137-145)
[2022-06-03 08:00] VITALS: PULSE 47
[2022-06-03] MEDS: SILVERGEL (ELTA) 45 ML 1 APPLIC TOPICAL (08:33)
--- NOTE | 2022-06-03 11:08 | PM.PNNEP ---
Progress Note: A&P Assessment and Plan (1) Hypernatremia: Code(s): E87.0 - Hyperosmolality and hypernatremia Status: Acute Assessment and Plan: as noted on presentation started on D5W IVFs -- but patient now refusing this due to poor oral intake(?) patient refusing oral hydration, IVFs and oral potassium supplements urine electrolytes c/w prerenal azotemia follow trend of repeat sodium levels (2) Hypokalemia: Code(s): E87.6 - Hypokalemia Status: Acute Assessment and Plan: suspect to due poor oral intake, possible total K+ depletion, and HCTZ use replete K+ as needed however, difficult to correct given patient's refusal to take K+ (IV and po) check magnesium intermittently (3) Multiple rib fractures: Code(s): S22.49XA - Multiple fractures of ribs, unspecified side, initial encounter for closed fracture Status: Acute Assessment and Plan: incentive spirometry pain control (4) Fall: Code(s): W19.XXXA - Unspecified fall, initial encounter Status: Acute Assessment and Plan: PT/OT as tolerated fall precautions (5) Paralysis of both lower limbs: Code(s): G82.20 - Paraplegia, unspecified Status: Acute Assessment and Plan: s/p spinal surgery PT/OT as tolerated Discussed with nursing as well as patient -- difficult to treat the patient for his hypernatremia and hypokalemia due to his refusal of care despite encouragement on numerous occasions. Will continue to follow. Subjective Date/time seen: 06/03/22 11:08 No apparent distress voiced at the time of my visit; no events/issues overnight or earlier this morning; however, he continues to refuse oral medications (potassium supplementation, BP medications...etc), oral fluid intake, as well as IVFs at this time despite encouragement by nursing and myself. Exam Narrative: General: middle aged male in NAD Heart: normal S1 and S2; no rub Lungs: clear to auscultation Abdomen: soft, nontender, nondistended, positive bowel sounds Extremities: no cyanosis or clubbing; no edema Skin: no rash Objective Data Vital Signs Vital Signs: Vital Signs Temp Pulse Resp BP Pulse Ox O2 Del Method 06/03/22 10:00 97.8 F 70 18 149/95 H 100 06/03/22 08:00 47 L 06/03/22 08:30 Room Air 06/03/22 04:00 69 06/03/22 05:33 97.5 F L 68 18 113/83 100 06/03/22 00:00 72 06/02/22 20:00 58 L 06/02/22 20:00 Room Air 06/02/22 21:47 97 F L 64 14 122/69 100 06/02/22 16:00 61 Intake/Output Intake/Output: Intake & Output 05/31/22 06/01/22 06/02/22 06/03/22 23:59 23:59 23:59 23:59 Intake Total 1140 1500 2140 1300 Output Total 800 1000 600 250 Balance 719 007 2198 1050 Meds/Results Medications: Active Medications Generic Name Dose Route Start Last Admin Trade Name Freq PRN Reason Stop Dose Admin Acetaminophen 1,000 mg 05/29/22 01:50 Acetaminophen 500 Mg Tablet PO Q6H PRN Mild Pain (1-3) or Fever Albuterol 2 puff 05/29/22 01:50 Albuterol Sulfate (*Sp) Aerosol 1 Puff INHALATION Q4H PRN Shortness Of Breath Amlodipine Besylate 10 mg 05/29/22 09:00 06/03/22 08:32 Amlodipine Besylate 5 Mg Tablet PO Not Given DAILY ISAIAS Atorvastatin Calcium 10 mg 05/29/22 09:00 06/03/22 08:32 Atorvastatin 10 Mg Tablet PO Not Given DAILY ISAIAS Dextrose 1,000 mls @ 100 mls/hr 06/02/22 23:55 06/03/22 10:46 Dextrose 5% 1,000 Ml IV CONT Not Given .Q10H ISAIAS Losartan Potassium 50 mg 05/29/22 09:00 06/03/22 08:32 Losartan Potassium 50 Mg Tablet PO Not Given DAILY [facility] Miconazole Nitrate 1 applic 05/31/22 09:00 06/03/22 08:32 Miconazole 2% Antifungal Ointment 56 Gm TOPICAL 1 applic Q12HR ISAIAS Administration Ondansetron HCl 4 mg 06/02/22 15:12 06/02/22 15:42 Ondansetron Inj 4 Mg/2 Ml Vial IV PUSH 4 mg Q6H
--- NOTE | 2022-06-03 11:08 | P.PNNP_ITS ---
Progress Note: A&P Assessment and Plan (1) Hypernatremia: Code(s): E87.0 - Hyperosmolality and hypernatremia Status: Acute Assessment and Plan: * as noted on presentation * started on D5W IVFs -- but patient now refusing this * due to poor oral intake(?) * patient refusing oral hydration, IVFs and oral potassium supplements * urine electrolytes c/w prerenal azotemia * follow trend of repeat sodium levels (2) Hypokalemia: Code(s): E87.6 - Hypokalemia Status: Acute Assessment and Plan: * suspect to due poor oral intake, possible total K+ depletion, and HCTZ use * replete K+ as needed * however, difficult to correct given patient's refusal to take K+ (IV and po) * check magnesium intermittently (3) Multiple rib fractures: Code(s): S22.49XA - Multiple fractures of ribs, unspecified side, initial encounter for closed fracture Status: Acute Assessment and Plan: * incentive spirometry * pain control (4) Fall: Code(s): W19.XXXA - Unspecified fall, initial encounter Status: Acute Assessment and Plan: * PT/OT as tolerated * fall precautions (5) Paralysis of both lower limbs: Code(s): G82.20 - Paraplegia, unspecified Status: Acute Assessment and Plan: * s/p spinal surgery * PT/OT as tolerated Discussed with nursing as well as patient -- difficult to treat the patient for his hypernatremia and hypokalemia due to his refusal of care despite encouragement on numerous occasions. Will continue to follow. Subjective Date/time seen: 06/03/22 11:08 No apparent distress voiced at the time of my visit; no events/issues overnight or earlier this morning; however, he continues to refuse oral medications (potassium supplementation, BP medications...etc), oral fluid intake, as well as IVFs at this time despite encouragement by nursing and myself. Exam Narrative: General: middle aged male in NAD Heart: normal S1 and S2; no rub Lungs: clear to auscultation Abdomen: soft, nontender, nondistended, positive bowel sounds Extremities: no cyanosis or clubbing; no edema Skin: no rash Objective Data Vital Signs Vital Signs: Vital Signs Temp Pulse Resp BP Pulse Ox O2 Del Method 06/03/22 10:00 97.8 F 70 18 149/95 H 100 06/03/22 08:00 47 L 06/03/22 08:30 Room Air 06/03/22 04:00 69 06/03/22 05:33 97.5 F L 68 18 113/83 100 06/03/22 00:00 72 06/02/22 20:00 58 L 06/02/22 20:00 Room Air 06/02/22 21:47 97 F L 64 14 122/69 100 06/02/22 16:00 61 Intake/Output Intake/Output: Intake & Output 05/31/22 06/01/22 06/02/22 06/03/22 23:59 23:59 23:59 23:59 Intake Total 1140 1500 2140 1300 Output Total 800 1000 600 250 Balance 604 241 7208 1050 Meds/Results Medications: Active Medications Generic Name Dose Route Start Last Admin Trade Name Freq PRN Reason Stop Dose Admin Acetaminophen 1,000 mg 05/29/22 01:50 Acetaminophen 500 Mg Tablet PO Q6H PRN Mild Pain (1-3) or Fever Albuterol 2 puff 05/29/22 01:50 Albuterol Sul
--- NOTE | 2022-06-03 11:16 | PM.IMPN ---
Progress Note: A&P Assessment and Plan (1) Multiple rib fractures: Code(s): S22.49XA - Multiple fractures of ribs, unspecified side, initial encounter for closed fracture Status: Acute Assessment and Plan: PT, incentive spirometry (2) Atelectasis, right: Code(s): J98.11 - Atelectasis Status: Acute Assessment and Plan: Incentive spirometry (3) Fall: Code(s): W19.XXXA - Unspecified fall, initial encounter Status: Acute Assessment and Plan: PT/OT (4) History of back surgery: Code(s): Z98.890 - Other specified postprocedural states Status: Acute Assessment and Plan: Postop back surgery at [facility] 05/11, [facility] (5) Hypokalemia: Code(s): E87.6 - Hypokalemia Status: Acute Assessment and Plan: Hold hydrochlorothiazide, replace and recheck potassium is 2.9 today KCl rider to replace potassium (6) History of hypertension: Code(s): Z86.79 - Personal history of other diseases of the circulatory system Status: Acute (7) Dyslipidemia: Code(s): E78.5 - Hyperlipidemia, unspecified Status: Acute (8) Hypernatremia: Code(s): E87.0 - Hyperosmolality and hypernatremia Status: Acute Assessment and Plan: Appreciate Nephrology input. Sodium level is still high. Await plan from Nephrology. Plan Likely need penitentiary facility placement. Subjective Date/time seen: 06/03/22 11:16 Sodium level is still high. Potassium level is low. He did refuse oral potassium yesterday. Exam Narrative: General: No acute distress HEENT: Atraumatic, normocephalic, mucous membranes moist CV: Regular rate and rhythm, S1, S2 Lungs: Clear to auscultation bilaterally, no rales or crackles noted, no wheezes, good air entry Abdomen: Soft, nontender, nondistended Extremities: Normal to inspection Skin: No rashes noted, no lesions or wounds seen Psych: Euthymic, normal affect Objective Data Vital Signs Vital Signs: Vital Signs - 24 hr 06/02/22 14:00 06/02/22 12:00 06/02/22 16:00 Temperature 97.3 F L Pulse Rate 60 58 L 61 Respiratory Rate 18 Blood Pressure 146/73 H Pulse Oximetry 100 Oxygen Delivery 06/02/22 21:47 06/02/22 20:00 06/02/22 20:00 Temperature 97 F L Pulse Rate 64 58 L Respiratory Rate 14 Blood Pressure 122/69 Pulse Oximetry 100 Oxygen Delivery Room Air 06/03/22 00:00 06/03/22 05:33 06/03/22 04:00 Temperature 97.5 F L Pulse Rate 72 68 69 Respiratory Rate 18 Blood Pressure 113/83 Pulse Oximetry 100 Oxygen Delivery 06/03/22 08:30 06/03/22 08:00 Temperature Pulse Rate 47 L Respiratory Rate Blood Pressure Pulse Oximetry Oxygen Delivery Room Air Intake/Output Intake/Output: Intake & Output 05/31/22 06/01/22 06/02/22 06/03/22 23:59 23:59 23:59 23:59 Intake Total 1140 1500 2140 900 Output Total 800 1000 600 250 Balance 399 521 2287 650 Meds/Results Medications: Active Medications Generic Name Dose Route Start Last Admin Trade Name Freq PRN Reason Stop Dose Admin Acetaminophen 1,000 mg 05/29/22 01:50 Acetaminophen 500 Mg Tablet PO Q6H PRN Mild Pain (1-3) or Fever Albuterol 2 puff 05/29/22 01:50 Albuterol Sulfate (*Sp) Aerosol 1 Puff INHALATION Q4H PRN Shortness Of Breath Amlodipine Besylate 10 mg 05/29/22 09:00 06/03/22 08:32 Amlodipine Besylate 5 Mg Tablet PO Not Given DAILY [facility] Atorvastatin Calcium 10 mg 05/29/22 09:00 06/03/22 08:32 Atorvastatin 10 Mg Tablet PO Not Given DAILY [facility] Dextrose 1,000 mls @ 100 mls/hr 06/02/22 23:55 06/03/22 10:46 Dextrose 5% 1,000 Ml IV CONT Not Given .Q10H [facility] Losartan Potassium 50 mg 05/29/22 09:00 06/03/22 08:32 Losartan Potassium 50 Mg Tablet PO Not Given DAILY [facility] Miconazole Nitrate 1 applic 05/31/22 09:00
--- NOTE | 2022-06-03 11:32 | PC.NURSE ---
pt refusing all medication and iv fluids. new order received for po potassium, pt refused. pt educated on refusal of medication and encouraged to take meds. pt currently participating in therapy.
[2022-06-03 14:00] VITALS: BP 149/95; PULSE 70; RESP 18; TEMP 36.6; O2SAT 100
[2022-06-03 21:52] VITALS: BP 140/80; PULSE 65; RESP 16; TEMP 35.5; O2SAT 100
[2022-06-04 06:00] VITALS: BP 137/88; PULSE 67; RESP 18; TEMP 35.7; O2SAT 100
[2022-06-04 07:58] LABS: Basophils Absolute Auto 0.1 K/mm3 (0.0-0.1); Basophils Percent Auto 0.5 % (0.2-1.2); Eosinophils Percent Auto 0.4 % (0-4.4); Hematocrit 38.5 % (42.0-52.0); Hemoglobin 12.1 g/dL (14.0-18.0); Immature Granulocyte Absolute 0.05 K/mm3 (0.00-0.031); Immature Granulocyte Percent A 0.5 % (0-0.5); Lymphocytes Absolute Auto 2.58 K/mm3 (0.9-3.2); Mean Corpuscular HGB Conc 31.4 g/dl (32-36); Mean Corpuscular Hemoglobin 31.4 pg (26-34); Mean Platelet Volume 12.9 fl (7.4-10.4); Monocytes Absolute Auto 1.5 K/mm3 (0.1-0.6); Monocytes Percent Auto 14.2 % (2.6-8.5); Neutrophils Absolute Auto 6.1 K/mm3 (1.3-6.7); Neutrophils Percent Auto 59.4 % (45.5-73.1); Platelet Count Result 224 k/mm3 (150-375); Red Blood Count 3.85 M/mm3 (4.6-6.20); Red Cell Distribution Width 17.8 % (11.5-14.5); White Blood Count 10.3 K/mm3 (4.5-10.0)
[2022-06-04 08:01] LABS: Alanine Aminotransferase 33 U/L (6-50); Albumin Level 3.6 g/dL (3.5-5.1); Alkaline Phosphatase 121 U/L (38-126); Anion Gap 9 mmol/L (8-16); Aspartate Amino Transferase 27 U/L (17-59); Bilirubin,Total 0.6 mg/dL (0.2-1.3); Blood Urea Nitrogen 17 mg/dL (9-20); Calcium 9.2 mg/dL (8.4-10.2); Carbon Dioxide 24 mmol/L (22-30); Chloride 122 mmol/L (98-107); Estimated CRCL calculation 98 ml/min; Estimated Glomerular Filt Rate > 60; Glucose 97 mg/dL (65-110); Potassium 3.2 mmol/L (3.4-5.0); Sodium 155 mmol/L (137-145)
[2022-06-04] MEDS: SILVERGEL (ELTA) 45 ML 1 APPLIC TOPICAL (08:14)
--- NOTE | 2022-06-04 09:59 | PM.IMPN ---
Progress Note: A&P Assessment and Plan (1) Multiple rib fractures: Code(s): S22.49XA - Multiple fractures of ribs, unspecified side, initial encounter for closed fracture Status: Acute Assessment and Plan: PT, incentive spirometry (2) Atelectasis, right: Code(s): J98.11 - Atelectasis Status: Acute Assessment and Plan: Incentive spirometry (3) Fall: Code(s): W19.XXXA - Unspecified fall, initial encounter Status: Acute Assessment and Plan: PT/OT (4) History of back surgery: Code(s): Z98.890 - Other specified postprocedural states Status: Acute Assessment and Plan: Postop back surgery at [facility] 05/11, [facility] (5) Hypokalemia: Code(s): E87.6 - Hypokalemia Status: Acute Assessment and Plan: Hold hydrochlorothiazide, replace and recheck potassium is 2.9 today KCl rider to replace potassium (6) History of hypertension: Code(s): Z86.79 - Personal history of other diseases of the circulatory system Status: Acute (7) Dyslipidemia: Code(s): E78.5 - Hyperlipidemia, unspecified Status: Acute (8) Hypernatremia: Code(s): E87.0 - Hyperosmolality and hypernatremia Status: Acute Assessment and Plan: Appreciate Nephrology input. Sodium level is still high. Await plan from Nephrology. Plan Likely need longterm facility placement. Subjective Date/time seen: 06/04/22 09:59 No complaints, refusing treatment Exam Narrative: General: No acute distress HEENT: Atraumatic, normocephalic, mucous membranes moist CV: Regular rate and rhythm, S1, S2 Lungs: Clear to auscultation bilaterally, no rales or crackles noted, no wheezes, good air entry Abdomen: Soft, nontender, nondistended Extremities: Normal to inspection Skin: No rashes noted, no lesions or wounds seen Psych: Euthymic, normal affect Objective Data Vital Signs Vital Signs: Vital Signs - 24 hr 06/03/22 14:00 06/03/22 21:52 06/04/22 06:00 Temperature 97.8 F 96 F L 96.2 F L Pulse Rate 70 65 67 Respiratory Rate 18 16 18 Blood Pressure 149/95 H 140/80 137/88 Pulse Oximetry 100 100 100 Oxygen Delivery 06/04/22 08:20 Temperature Pulse Rate Respiratory Rate Blood Pressure Pulse Oximetry Oxygen Delivery Room Air Intake/Output Intake/Output: Intake & Output 06/01/22 06/02/22 06/03/22 06/04/22 23:59 23:59 23:59 23:59 Intake Total 1500 2140 2150 450 Output Total 1000 600 450 300 Balance 500 1540 1700 150 Meds/Results Medications: Active Medications Generic Name Dose Route Start Last Admin Trade Name Freq PRN Reason Stop Dose Admin Acetaminophen 1,000 mg 05/29/22 01:50 Acetaminophen 500 Mg Tablet PO Q6H PRN Mild Pain (1-3) or Fever Albuterol 2 puff 05/29/22 01:50 Albuterol Sulfate (*Sp) Aerosol 1 Puff INHALATION Q4H PRN Shortness Of Breath Amlodipine Besylate 10 mg 05/29/22 09:00 06/04/22 08:14 Amlodipine Besylate 5 Mg Tablet PO Not Given DAILY [facility] Atorvastatin Calcium 10 mg 05/29/22 09:00 06/04/22 08:14 Atorvastatin 10 Mg Tablet PO Not Given DAILY [facility] Dextrose 1,000 mls @ 100 mls/hr 06/02/22 23:55 06/04/22 05:31 Dextrose 5% 1,000 Ml IV CONT Not Given .Q10H [facility] Losartan Potassium 50 mg 05/29/22 09:00 06/04/22 08:14 Losartan Potassium 50 Mg Tablet PO Not Given DAILY [facility] Miconazole Nitrate 1 applic 05/31/22 09:00 06/04/22 08:14 Miconazole 2% Antifungal Ointment 56 Gm TOPICAL 1 applic Q12HR [facility] Administration Ondansetron HCl 4 mg 06/02/22 15:12 06/02/22 15:42 Ondansetron Inj 4 Mg/2 Ml Vial IV PUSH 4 mg Q6H PRN Administration Nausea And Vomiting Oxycodone HCl 10 mg 05/29/22 09:00 06/04/22 08:14 Oxycodone Hcl (*Crx) 10 Mg Tab Sr 12hr PO Not Given Q12HR [facility] Potassium Chloride 40 meq 06/03/22 08
--- NOTE | 2022-06-04 10:46 | P.PNNP_ITS ---
Progress Note: A&P Assessment and Plan (1) Hypernatremia: Code(s): E87.0 - Hyperosmolality and hypernatremia Status: Acute Assessment and Plan: * as noted on presentation * started on D5W IVFs -- but patient now refusing this * due to poor oral intake(?) * patient refusing oral hydration, IVFs and oral potassium supplements * urine electrolytes c/w prerenal azotemia * he says he is drinking more water. * We discussed that he is dehydrated would feel better if he was better hydrated. * I will order labs for tomorrow in case he is still here (2) Hypokalemia: Code(s): E87.6 - Hypokalemia Status: Acute Assessment and Plan: * suspect to due poor oral intake, possible total K+ depletion, and HCTZ use * Potassium low this morning. He received AK rider today * check magnesium intermittently (3) Multiple rib fractures: Code(s): S22.49XA - Multiple fractures of ribs, unspecified side, initial encounter for closed fracture Status: Acute Assessment and Plan: * incentive spirometry * pain control (4) Fall: Code(s): W19.XXXA - Unspecified fall, initial encounter Status: Acute Assessment and Plan: * PT/OT as tolerated * fall precautions (5) Paralysis of both lower limbs: Code(s): G82.20 - Paraplegia, unspecified Status: Acute Assessment and Plan: * s/p spinal surgery * PT/OT as tolerated Subjective Date/time seen: 06/04/22 10:46 Interval history: Patient eager for discharge. He says his daughter is going to come and get him to take him to rehab today. He is thirsty. He drank all the water at bedside. Exam Narrative: General: middle aged male in NAD Heart: normal S1 and S2; no rub or gallop Lungs: clear bilaterally Abdomen: soft, nontender, nondistended, positive bowel sounds Extremities: no cyanosis or clubbing; no edema Skin: no rash or subcu nodules Objective Data Vital Signs Vital Signs: Vital Signs - 24 hr 06/03/22 14:00 06/03/22 21:52 06/04/22 06:00 Temperature 97.8 F 96 F L 96.2 F L Pulse Rate 70 65 67 Respiratory Rate 18 16 18 Blood Pressure 149/95 H 140/80 137/88 Pulse Oximetry 100 100 100 Oxygen Delivery 06/04/22 08:20 Temperature Pulse Rate Respiratory Rate Blood Pressure Pulse Oximetry Oxygen Delivery Room Air Intake/Output Intake/Output: Intake & Output 06/01/22 06/02/22 06/03/22 06/04/22 23:59 23:59 23:59 23:59 Intake Total 1500 2140 2150 450 Output Total 1000 600 450 300 Balance 500 1540 1700 150 Meds/Results Medications: Active Medications Generic Name Dose Route Start Last Admin Trade Name Freq PRN Reason Stop Dose Admin Acetaminophen 1,000 mg 05/29/22 01:50 Acetaminophen 500 Mg Tablet PO Q6H PRN Mild Pain (1-3) or Fever Albuterol 2 puff 05/29/22 01:50 Albuterol Sulfate (*Sp) Aerosol 1 Puff INHALATION Q4H PRN Shortness Of Breath Amlodipine Besylate 10 mg 05/29/22 09:00 06/04/22 08:14 Amlodipine Besylate 5 Mg Tablet PO Not Given
--- NOTE | 2022-06-04 10:46 | PM.PNNEP ---
Progress Note: A&P Assessment and Plan (1) Hypernatremia: Code(s): E87.0 - Hyperosmolality and hypernatremia Status: Acute Assessment and Plan: as noted on presentation started on D5W IVFs -- but patient now refusing this due to poor oral intake(?) patient refusing oral hydration, IVFs and oral potassium supplements urine electrolytes c/w prerenal azotemia he says he is drinking more water. We discussed that he is dehydrated would feel better if he was better hydrated. I will order labs for tomorrow in case he is still here (2) Hypokalemia: Code(s): E87.6 - Hypokalemia Status: Acute Assessment and Plan: suspect to due poor oral intake, possible total K+ depletion, and HCTZ use Potassium low this morning. He received AK rider today check magnesium intermittently (3) Multiple rib fractures: Code(s): S22.49XA - Multiple fractures of ribs, unspecified side, initial encounter for closed fracture Status: Acute Assessment and Plan: incentive spirometry pain control (4) Fall: Code(s): W19.XXXA - Unspecified fall, initial encounter Status: Acute Assessment and Plan: PT/OT as tolerated fall precautions (5) Paralysis of both lower limbs: Code(s): G82.20 - Paraplegia, unspecified Status: Acute Assessment and Plan: s/p spinal surgery PT/OT as tolerated Subjective Date/time seen: 06/04/22 10:46 Interval history: Patient eager for discharge. He says his daughter is going to come and get him to take him to rehab today. He is thirsty. He drank all the water at bedside. Exam Narrative: General: middle aged male in NAD Heart: normal S1 and S2; no rub or gallop Lungs: clear bilaterally Abdomen: soft, nontender, nondistended, positive bowel sounds Extremities: no cyanosis or clubbing; no edema Skin: no rash or subcu nodules Objective Data Vital Signs Vital Signs: Vital Signs - 24 hr 06/03/22 14:00 06/03/22 21:52 06/04/22 06:00 Temperature 97.8 F 96 F L 96.2 F L Pulse Rate 70 65 67 Respiratory Rate 18 16 18 Blood Pressure 149/95 H 140/80 137/88 Pulse Oximetry 100 100 100 Oxygen Delivery 06/04/22 08:20 Temperature Pulse Rate Respiratory Rate Blood Pressure Pulse Oximetry Oxygen Delivery Room Air Intake/Output Intake/Output: Intake & Output 06/01/22 06/02/22 06/03/22 06/04/22 23:59 23:59 23:59 23:59 Intake Total 1500 2140 2150 450 Output Total 1000 600 450 300 Balance 500 1540 1700 150 Meds/Results Medications: Active Medications Generic Name Dose Route Start Last Admin Trade Name Freq PRN Reason Stop Dose Admin Acetaminophen 1,000 mg 05/29/22 01:50 Acetaminophen 500 Mg Tablet PO Q6H PRN Mild Pain (1-3) or Fever Albuterol 2 puff 05/29/22 01:50 Albuterol Sulfate (*Sp) Aerosol 1 Puff INHALATION Q4H PRN Shortness Of Breath Amlodipine Besylate 10 mg 05/29/22 09:00 06/04/22 08:14 Amlodipine Besylate 5 Mg Tablet PO Not Given DAILY [facility] Atorvastatin Calcium 10 mg 05/29/22 09:00 06/04/22 08:14 Atorvastatin 10 Mg Tablet PO Not Given DAILY [facility] Dextrose 1,000 mls @ 100 mls/hr 06/02/22 23:55 06/04/22 05:31 Dextrose 5% 1,000 Ml IV CONT Not Given .Q10H [facility] Losartan Potassium 50 mg 05/29/22 09:00 06/04/22 08:14 Losartan Potassium 50 Mg Tablet PO Not Given DAILY [facility] Miconazole Nitrate 1 applic 05/31/22 09:00 06/04/22 08:14 Miconazole 2% Antifungal Ointment 56 Gm TOPICAL 1 applic Q12HR [facility] Administration Ondansetron HCl 4 mg 06/02/22 15:12 06/02/22 15:42 Ondansetron Inj 4 Mg/2 Ml Vial IV PUSH 4 mg Q6H PRN Administration Nausea And Vomiting Oxycodone HCl 10 mg 05/29/22 09:00 06/04/22 08:14 Oxycodone Hcl (*Crx) 10 Mg Tab Sr 12hr PO Not Given Q12HR [facility] Potassium Chloride 40 meq 06/03/22 08:00 06/04/22 08:14 Elder
[2022-06-04 14:00] VITALS: BP 135/84; PULSE 63; RESP 18; TEMP 36.3; O2SAT 99
[2022-06-04 21:40] VITALS: BP 148/80; PULSE 73; RESP 13; TEMP 36.3; O2SAT 100
[2022-06-05 06:00] VITALS: BP 153/83; PULSE 72; RESP 14; TEMP 36.2; O2SAT 100
[2022-06-05 06:58] LABS: Basophils Absolute Auto 0.1 K/mm3 (0.0-0.1); Basophils Percent Auto 0.6 % (0.2-1.2); Eosinophils Absolute Auto 0.1 K/mm3 (0-0.3); Eosinophils Percent Auto 0.5 % (0-4.4); Hematocrit 41.2 % (42.0-52.0); Hemoglobin 12.9 g/dL (14.0-18.0); Immature Granulocyte Absolute 0.07 K/mm3 (0.00-0.031); Immature Granulocyte Percent A 0.7 % (0-0.5); Lymphocytes Absolute Auto 2.82 K/mm3 (0.9-3.2); Lymphocytes Percent Auto 29.9 % (18.3-44.2); Mean Corpuscular HGB Conc 31.3 g/dl (32-36); Mean Platelet Volume 12.7 fl (7.4-10.4); Monocytes Absolute Auto 1.5 K/mm3 (0.1-0.6); Monocytes Percent Auto 15.9 % (2.6-8.5); Neutrophils Absolute Auto 4.9 K/mm3 (1.3-6.7); Neutrophils Percent Auto 52.4 % (45.5-73.1); Nucleated Red Blood Cells Perc 0.3 % (0.0-0.2); Platelet Count Result 241 k/mm3 (150-375); Red Blood Count 4.16 M/mm3 (4.6-6.20); Red Cell Distribution Width 18.3 % (11.5-14.5); White Blood Count 9.4 K/mm3 (4.5-10.0)
[2022-06-05 08:54] LABS: Alanine Aminotransferase 35 U/L (6-50); Albumin Level 3.9 g/dL (3.5-5.1); Alkaline Phosphatase 109 U/L (38-126); Anion Gap 11 mmol/L (8-16); Aspartate Amino Transferase 39 U/L (17-59); Bilirubin,Total 0.9 mg/dL (0.2-1.3); Blood Urea Nitrogen 21 mg/dL (9-20); Calcium 9.5 mg/dL (8.4-10.2); Carbon Dioxide 23 mmol/L (22-30); Chloride 128 mmol/L (98-107); Estimated CRCL calculation 80 ml/min; Estimated Glomerular Filt Rate > 60; Glucose 95 mg/dL (65-110); Phosphorus 3.8 mg/dL (2.5-4.5); Sodium 162 mmol/L (137-145)
[2022-06-05] MEDS: DEXTROSE 5% 1,000 ML 1,000 ML 100 ML IV CONT (09:09)
[2022-06-05] MEDS: DEXTROSE 5% 1,000 ML 1,000 ML 166.6 ML IV CONT (09:25)
--- NOTE | 2022-06-05 10:14 | PM.PNNEP ---
Progress Note: A&P Assessment and Plan (1) Hypernatremia: Code(s): E87.0 - Hyperosmolality and hypernatremia Status: Acute Assessment and Plan: as noted on presentation patient off IV fluids overnight. He agrees to D5W. Will give 1L over 6 hours and repeat the sodium. due to poor oral intake(?) patient has been refusing oral hydration, IVFs and oral potassium supplements urine electrolytes c/w prerenal azotemia he is not really drinking water. If anything he is been spitting his saliva into the water cup. We discussed that he is dehydrated would feel better if he was better hydrated. Will give D5W 1L over 6 hours and repeat a basic metabolic panel after that and we will go from there. (2) Hypokalemia: Code(s): E87.6 - Hypokalemia Status: Acute Assessment and Plan: Potassium okay today (3) Multiple rib fractures: Code(s): S22.49XA - Multiple fractures of ribs, unspecified side, initial encounter for closed fracture Status: Acute Assessment and Plan: incentive spirometry pain control (4) Fall: Code(s): W19.XXXA - Unspecified fall, initial encounter Status: Acute Assessment and Plan: PT/OT as tolerated fall precautions (5) Paralysis of both lower limbs: Code(s): G82.20 - Paraplegia, unspecified Status: Acute Assessment and Plan: s/p spinal surgery PT/OT as tolerated Subjective Date/time seen: 06/05/22 10:14 Interval history: Patient eager for discharge. unfortunately his sodium level has risen so he cannot go home yet. He has been refusing IV fluids. His sodium is up to 162. I had a long talk with the patient. He will end up falling into a coma and passing away if the sodium continues to rise. If he goes home or to a intermediate then the sodium is bound to worsen. He does not seem worried about this issue. Asked him if he wanted to be on hospice and he said absolutely not. So we again discussed how dangerous it is for the sodium to be this high. We need to treat this. He needs to drink fluid and also we need to give him some IV hypotonic fluid to bring his sodium down. Exam Narrative: General: middle aged male in NAD Heart: normal S1 and S2; no rub or gallop Lungs: clear bilaterally Abdomen: soft, nontender, nondistended, positive bowel sounds Extremities: no cyanosis or clubbing; no edema Skin: no rash or subcu nodules Objective Data Vital Signs Vital Signs: Vital Signs - 24 hr 06/04/22 14:00 06/04/22 21:40 06/05/22 06:00 Temperature 97.4 F L 97.4 F L 97.2 F L Pulse Rate 63 73 72 Respiratory Rate 18 13 14 Blood Pressure 135/84 148/80 H 153/83 H Pulse Oximetry 99 100 100 Oxygen Delivery 06/05/22 09:10 Temperature Pulse Rate Respiratory Rate Blood Pressure Pulse Oximetry Oxygen Delivery Room Air Intake/Output Intake/Output: Intake & Output 06/02/22 06/03/22 06/04/22 06/05/22 23:59 23:59 23:59 23:59 Intake Total 2140 2150 450 500 Output Total 600 450 900 500 Balance 1540 1700 -450 0 Meds/Results Medications: Active Medications Generic Name Dose Route Start Last Admin Trade Name Freq PRN Reason Stop Dose Admin Acetaminophen 1,000 mg 05/29/22 01:50 Acetaminophen 500 Mg Tablet PO Q6H PRN Mild Pain (1-3) or Fever Albuterol 2 puff 05/29/22 01:50 Albuterol Sulfate (*Sp) Aerosol 1 Puff INHALATION Q4H PRN Shortness Of Breath Amlodipine Besylate 10 mg 05/29/22 09:00 06/05/22 09:51 Amlodipine Besylate 5 Mg Tablet PO Not Given DAILY [facility] Atorvastatin Calcium 10 mg 05/29/22 09:00 06/05/22 09:51 Atorvastatin 10 Mg Tablet PO Not Given DAILY [facility] Dextrose 1,000 mls @ 166.6 mls/hr 06/05/22 09:25 06/05/22 09:25 Dextrose 5% 1,000 Ml IV CONT 06/05/22 15:25 166.6 mls/hr .Q6H1M ONE Administration Losartan Potassium 50 mg 05/29/22 09:00
--- NOTE | 2022-06-05 11:33 | PM.IMPN ---
Progress Note: A&P Assessment and Plan (1) Multiple rib fractures: Code(s): S22.49XA - Multiple fractures of ribs, unspecified side, initial encounter for closed fracture Status: Acute Assessment and Plan: PT, incentive spirometry (2) Atelectasis, right: Code(s): J98.11 - Atelectasis Status: Acute Assessment and Plan: Incentive spirometry (3) Fall: Code(s): W19.XXXA - Unspecified fall, initial encounter Status: Acute Assessment and Plan: PT/OT (4) History of back surgery: Code(s): Z98.890 - Other specified postprocedural states Status: Acute Assessment and Plan: Postop back surgery at [facility] 05/11, [facility] (5) Hypokalemia: Code(s): E87.6 - Hypokalemia Status: Acute Assessment and Plan: Hold hydrochlorothiazide, replace and recheck potassium is 2.9 today KCl rider to replace potassium (6) History of hypertension: Code(s): Z86.79 - Personal history of other diseases of the circulatory system Status: Acute (7) Dyslipidemia: Code(s): E78.5 - Hyperlipidemia, unspecified Status: Acute (8) Hypernatremia: Code(s): E87.0 - Hyperosmolality and hypernatremia Status: Acute Assessment and Plan: Appreciate Nephrology input. Sodium level is still high. Await plan from Nephrology. Plan Likely need care home facility placement. Subjective Date/time seen: 06/05/22 11:33 No complaints Exam Narrative: General: No acute distress HEENT: Atraumatic, normocephalic, mucous membranes moist CV: Regular rate and rhythm, S1, S2 Lungs: Clear to auscultation bilaterally, no rales or crackles noted, no wheezes, good air entry Abdomen: Soft, nontender, nondistended Extremities: Normal to inspection Skin: No rashes noted, no lesions or wounds seen Psych: Euthymic, normal affect Objective Data Vital Signs Vital Signs: Vital Signs - 24 hr 06/04/22 14:00 06/04/22 21:40 06/05/22 06:00 Temperature 97.4 F L 97.4 F L 97.2 F L Pulse Rate 63 73 72 Respiratory Rate 18 13 14 Blood Pressure 135/84 148/80 H 153/83 H Pulse Oximetry 99 100 100 Oxygen Delivery 06/05/22 09:10 Temperature Pulse Rate Respiratory Rate Blood Pressure Pulse Oximetry Oxygen Delivery Room Air Intake/Output Intake/Output: Intake & Output 06/02/22 06/03/22 06/04/22 06/05/22 23:59 23:59 23:59 23:59 Intake Total 2140 2150 450 500 Output Total 600 450 900 500 Balance 1540 1700 -450 0 Meds/Results Medications: Active Medications Generic Name Dose Route Start Last Admin Trade Name Freq PRN Reason Stop Dose Admin Acetaminophen 1,000 mg 05/29/22 01:50 Acetaminophen 500 Mg Tablet PO Q6H PRN Mild Pain (1-3) or Fever Albuterol 2 puff 05/29/22 01:50 Albuterol Sulfate (*Sp) Aerosol 1 Puff INHALATION Q4H PRN Shortness Of Breath Amlodipine Besylate 10 mg 05/29/22 09:00 06/05/22 09:51 Amlodipine Besylate 5 Mg Tablet PO Not Given DAILY [facility] Atorvastatin Calcium 10 mg 05/29/22 09:00 06/05/22 09:51 Atorvastatin 10 Mg Tablet PO Not Given DAILY [facility] Dextrose 1,000 mls @ 166.6 mls/hr 06/05/22 09:25 06/05/22 09:25 Dextrose 5% 1,000 Ml IV CONT 06/05/22 15:25 166.6 mls/hr .Q6H1M ONE Administration Losartan Potassium 50 mg 05/29/22 09:00 06/05/22 09:51 Losartan Potassium 50 Mg Tablet PO Not Given DAILY [facility] Miconazole Nitrate 1 applic 05/31/22 09:00 06/04/22 22:31 Miconazole 2% Antifungal Ointment 56 Gm TOPICAL Not Given Q12HR [facility] Ondansetron HCl 4 mg 06/02/22 15:12 06/02/22 15:42 Ondansetron Inj 4 Mg/2 Ml Vial IV PUSH 4 mg Q6H PRN Administration Nausea And Vomiting Oxycodone HCl 10 mg 05/29/22 09:00 06/05/22 09:52 Oxycodone Hcl (*Crx) 10 Mg Tab Sr 12hr PO Not Given Q12HR [facility] Potassium Chloride 40 meq
[2022-06-05 14:00] VITALS: BP 147/80; PULSE 76; RESP 16; TEMP 36.6; O2SAT 99
[2022-06-05] MEDS: SILVERGEL (ELTA) 45 ML 1 APPLIC TOPICAL (15:43)
[2022-06-05] MEDS: DEXTROSE 5% 1,000 ML 1,000 ML 50 ML IV CONT (16:42)
[2022-06-05 16:43] LABS: Sodium 157 mmol/L (137-145)
[2022-06-05 21:10] VITALS: BP 155/78; PULSE 68; RESP 16; TEMP 37.3; O2SAT 96
[2022-06-06 06:00] VITALS: BP 141/84; PULSE 79; RESP 16; TEMP 37.4; O2SAT 100
[2022-06-06 06:35] LABS: Basophils Absolute Auto 0.1 K/mm3 (0.0-0.1); Basophils Percent Auto 0.9 % (0.2-1.2); Eosinophils Absolute Auto 0.2 K/mm3 (0-0.3); Eosinophils Percent Auto 1.5 % (0-4.4); Hemoglobin 13.3 g/dL (14.0-18.0); Immature Granulocyte Absolute 0.12 K/mm3 (0.00-0.031); Immature Granulocyte Percent A 1.2 % (0-0.5); Lymphocytes Absolute Auto 3.09 K/mm3 (0.9-3.2); Lymphocytes Percent Auto 30.1 % (18.3-44.2); Mean Corpuscular HGB Conc 30.9 g/dl (32-36); Mean Corpuscular Hemoglobin 31.5 pg (26-34); Mean Corpuscular Volume 101.9 fl (80-100); Monocytes Absolute Auto 1.5 K/mm3 (0.1-0.6); Neutrophils Absolute Auto 5.3 K/mm3 (1.3-6.7); Neutrophils Percent Auto 51.3 % (45.5-73.1); Nucleated Red Blood Cells Absolute Auto 0.1 K/mm3 (0.0-0.012); Nucleated Red Blood Cells Perc 0.6 % (0.0-0.2); Platelet Count Result 223 k/mm3 (150-375); Red Blood Count 4.22 M/mm3 (4.6-6.20); Red Cell Distribution Width 18.4 % (11.5-14.5); White Blood Count 10.3 K/mm3 (4.5-10.0)
[2022-06-06 06:47] LABS: Alanine Aminotransferase 34 U/L (6-50); Albumin Level 3.7 g/dL (3.5-5.1); Alkaline Phosphatase 128 U/L (38-126); Anion Gap 11 mmol/L (8-16); Aspartate Amino Transferase 30 U/L (17-59); Bilirubin,Total 0.8 mg/dL (0.2-1.3); Blood Urea Nitrogen 21 mg/dL (9-20); Calcium 9.1 mg/dL (8.4-10.2); Carbon Dioxide 23 mmol/L (22-30); Chloride 122 mmol/L (98-107); Estimated CRCL calculation 73 ml/min; Estimated Glomerular Filt Rate > 60; Glucose 111 mg/dL (65-110); Phosphorus 3.6 mg/dL (2.5-4.5); Potassium 3.3 mmol/L (3.4-5.0); Sodium 156 mmol/L (137-145)
--- NOTE | 2022-06-06 09:18 | PC.NURSE ---
Found pt with both IV's out, one on the floor and one on bedside table. Pt states they fell out overnight . Pt also states he will not take his scheduled morning medications until his daughter gets here today.
--- NOTE | 2022-06-06 11:47 | PM.DS ---
DS: Admitting Diagnosis Discharge Date June 06, 2022 Admitting Diagnosis Weakness falls and dehydration electrolyte abnormalities DS: Discharge Diagnosis Discharge Diagnosis (1) Multiple rib fractures: Code(s): S22.49XA - Multiple fractures of ribs, unspecified side, initial encounter for closed fracture Status: Acute Assessment and Plan: PT, incentive spirometry (2) Atelectasis, right: Code(s): J98.11 - Atelectasis Status: Acute Assessment and Plan: Incentive spirometry (3) Fall: Code(s): W19.XXXA - Unspecified fall, initial encounter Status: Acute Assessment and Plan: PT/OT (4) History of back surgery: Code(s): Z98.890 - Other specified postprocedural states Status: Acute Assessment and Plan: Postop back surgery at [facility] (5) Hypokalemia: Code(s): E87.6 - Hypokalemia Status: Acute Assessment and Plan: Hold hydrochlorothiazide, replace and recheck potassium is 2.9 today KCl rider to replace potassium (6) History of hypertension: Code(s): Z86.79 - Personal history of other diseases of the circulatory system Status: Acute (7) Dyslipidemia: Code(s): E78.5 - Hyperlipidemia, unspecified Status: Acute (8) Hypernatremia: Code(s): E87.0 - Hyperosmolality and hypernatremia Status: Acute Assessment and Plan: Appreciate Nephrology input. Sodium level is still high. Await plan from Nephrology. DS: Summary Hospital Course Hospital Course: Admitted for dehydration, falls and electrolyte abnormalities Patient refused treatment last couple days and has elevated na and hypoK - since he is refusing treatment and of sound mind he will be dc to [place] Time Spent with Patient Time attestation: Total time spent providing and/or coordinating discharge services: Exam Narrative: General: No acute distress HEENT: Atraumatic, normocephalic, mucous membranes moist CV: Regular rate and rhythm, S1, S2 Lungs: Clear to auscultation bilaterally, no rales or crackles noted, no wheezes, good air entry Abdomen: Soft, nontender, nondistended Extremities: Normal to inspection Skin: No rashes noted, no lesions or wounds seen Psych: Euthymic, normal affect DS: Data Data Completed and Pending Labs on day of discharge: Labs from last 24 hours 06/06/22 06/06/22 06/05/22 06:22 06:22 15:47 WBC 10.3 H RBC 4.22 L Hgb 13.3 L Hct 43.0 MCV 101.9 H MCH 31.5 MCHC 30.9 L RDW 18.4 H Plt Count 223 MPV 13.0 H Immature Gran % (Auto) 1.2 H Neut % (Auto) 51.3 Lymph % (Auto) 30.1 [place] % (Auto) 15.0 H Eos % (Auto) 1.5 Baso % (Auto) 0.9 Lymph # (Auto) 3.09 [place] # (Auto) 1.5 H Eos # (Auto) 0.2 Baso # (Auto) 0.1 Abs Immat Gran (auto) 0.12 H Absolute Neuts (auto) 5.3 Absolute Nucleated RBC 0.1 H Nucleated RBC % 0.6 H Sodium 156 H Cancelled Potassium 3.3 L Cancelled Chloride 122 H Cancelled Carbon Dioxide 23 Cancelled Anion Gap 11 Cancelled BUN 21 H Cancelled Creatinine 1.10 Cancelled Estim Creat Clear Calc 73 Cancelled Estimated GFR > 60 Cancelled Glucose 111 H Cancelled Calcium 9.1 Cancelled Phosphorus 3.6 Total Bilirubin 0.8 AST 30 ALT 34 Alkaline Phosphatase 128 H Total Protein 7.0 Albumin 3.7 06/05/22 15:43 WBC RBC Hgb Hct MCV MCH MCHC RDW Plt Count MPV Immature Gran % (Auto) Neut % (Auto) Lymph % (Auto) [place] % (Auto) Eos % (Auto) Baso % (Auto) Lymph # (Auto) [place] # (Auto) Eos # (Auto) Baso # (Auto) Abs Immat Gran (auto) Absolute Neuts (auto) Absolute Nucleated RBC Nucleated RBC % Sodium 157 H Potassium Chloride Carbon Dioxide Anion Gap BUN Creatinine Estim Creat Clear Calc Estimated GFR Glucose Calcium Phosphoru
--- NOTE | 2022-06-06 13:30 | PCOTNOTE ---
Attempted to see Patient for afternoon session. Patient declined services at this time, stating, I'm leaving here and going somewhere else, I'll do my work there .
[2022-06-06 13:39] LABS: EDCOVIDSCREEN Negative (Negative)
[2022-06-06 14:00] VITALS: BP 141/92; PULSE 101; RESP 20; TEMP 36.6; O2SAT 100
[2022-06-07 15:46] LABS: Chloride Rand Ur 24 mmol/L (32-290); Chloride/Creatinine Rand Ur 23 (23-275); Creatinine Random Urine 105 mg/dL (20-320)
== END 2022-06-06 15:06 | DRG 641 ==
LOC: ANHED 22:05 → ANH3MEDSUR 22:47
PROVIDERS: Internal Medicine Nephrology; Student in an Organized Health Care Education/Training Program; Admitting Provider Internal Medicine; Emergency Provider Emergency Medicine; Visit Provider Chiropractor
DX: E86.0 Dehydration (principal); S22.41XA Multiple fractures of ribs, right side, initial encounter for closed fracture; J98.11 Atelectasis; G82.20 Paraplegia, unspecified; E87.0 Hyperosmolality and hypernatremia; E87.6 Hypokalemia; E78.5 Hyperlipidemia, unspecified; I10 Essential (primary) hypertension; W05.0XXA Fall from non-moving wheelchair, initial encounter; M48.00 Spinal stenosis, site unspecified; R15.9 Full incontinence of feces; R32 Unspecified urinary incontinence; Z86.79 Personal history of other diseases of the circulatory system; Z98.890 Other specified postprocedural states; Z20.822 Contact with and (suspected) exposure to COVID-19
CPT/HCPCS: 36415; 71045; 71046; 72128; 72131; 80048; 80053; 82436; 82533; 82570; 83735; 84100; 84295; 84300; 84443; 85025; 87040; 87086; 87426; 96365; 96367; 96372; 97110; 97161; 97165; 97530; 97535; 99285; A9270; C9803; G0378; J0456; J0696; J1650; J2405; J2543; J3480; J7040; J7070